=== PATIENT | female | born 1940 | race Caucasian/White ===

== ENCOUNTER 2017-10-14 05:45 | Inpatient (IN) | payer MEDICARE ==
--- NOTE | 2017-10-14 00:58 | HP ---
HISTORY OF PRESENT ILLNESS: Ms. Hawk is a 76-year-old woman who presents for evaluation of 1 month history of left lower extremity pain most consistent with a left L3 radiculopathy. She does have a h istory of previous spinal decompression and fusion from both anterior and posterior approach many yea rs ago at levels beneath the site of where her pain seems to be coming from. She has an MRI from [facility], it reveals severe lumbar stenosis L2-L3 with a disk osteophyte complex eccentric to the left which fits very well with symptoms that she is presenting with. She has had 1 epidural steroid inje ction and oral steroids which provided minimal relief. She hopes to move forward with some type of s urgical intervention if possible. PAST MEDICAL HISTORY: Significant for ITP and CLL. CURRENT MEDICATIONS: Chlorthalidone, potassium chloride, fluticasone, Premarin and [place]. PAST SURGICAL HISTORY: Hysterectomy, cystectomy from her foot, facelift, cholecystectomy, previous l umbar back surgeries, herniorrhaphy, retina surgery, dacryocystorhinostomy x3, splenectomy. ALLERGIES: BROVANA, TETRACYCLINE, SULFA, PREVPAC, and CIPRO. PHYSICAL EXAMINATION: The patient has severely antalgic gait. Lower extremity motor exam is normal. No sensory disturbance that I can discern. ASSESSMENT: Lumbar radiculopathy. PLAN: Dr. Rock met with the patient, reviewed imaging and ultimately advocated for a left L2 diskec lauren and laminectomy. He explained the patient the risks, benefits, alternatives of the procedure. The patient expressed understanding and would like to move forward with surgery as discussed. I do b elieve this patient is mentally competent and capable of making medical decisions for herself. We wi ll move forward with surgery as planned. Saad Cordero PA-C, dictating for Vasiliy Rock M.D.
[2017-10-14] MEDS ORDERED: Bupivacaine PF 0.5% 30 ML VIAL ONE ×2 (07:49→19:58)
[2017-10-14] MEDS ORDERED: Lidocaine 1% w/Epinephrine 1:200K 30 ML VIAL ONE ×2 (07:49→19:58)
[2017-10-14] MEDS ORDERED: CEFAZOLIN/Water 2 GM/20 ML SYRINGE ONE ×2 (07:50→16:54)
[2017-10-14] MEDS ORDERED: Midazolam HCl 2 mg/2 ml Vial ONE (07:50)
[2017-10-14 08:26] LABS: Hemoglobin 14.7 g/dL (12.0-16.0); Mean Corpuscular HGB CONC 33.1 g/dL (32.0-36.0); Mean Corpuscular Hemoglobin 31.1 pg (27.0-31.0); Mean Corpuscular Volume 93.8 fl (81.0-99.0); Mean Platelet Volume 14.1 fL (7.4-10.4); Platelet Count 67 thou/uL (130-400); RBC Distribution Width 12.6 % (11.5-14.5); Red Blood Cell (RBC) Count 4.72 mill/uL (4.20-5.40); White Blood Cell (WBC) Count 17.4 thou/uL (4.8-10.8)
[2017-10-14] MEDS ORDERED: Fentanyl 100 MCG/2 ML VIAL ONE ×3 (08:27→23:24)
[2017-10-14 08:29] LABS: Anion Gap 13 mmol/L (10-20); BUN (Urea Nitrogen) 11 mg/dL (9.8-20.1); Calc. Creatinine Clearance 67 mL/min (70-130); Calcium 10.5 mg/dL (7.8-10.44); Carbon Dioxide 26 mmol/L (23-31); Chloride 101 mmol/L (98-107); Estimated GFR-MDRD 74; Glucose 89 mg/dL (83-110); Potassium 3.4 mmol/L (3.5-5.1); Sodium 137 mmol/L (136-145)
[2017-10-14 08:31] LABS: PTT 26.9 SEC (22.9-36.1); Prothrombin Time 13.3 SEC (12.0-14.7)
[2017-10-14 08:44] LABS: Eosinophils 4 % (0-10); Lymphocytes 27 % (21-51); MDiff Complete? YES; Monocytes 1 % (0-10); Neutrophil 45 % (42-75); RBC Morphology Normal; Reactive Lymphocytes 22 % (0-10)
[2017-10-14] MEDS ORDERED: Meperidine HCl/PF 25 MG/ML VIAL ONE ×2 (10:26→23:07)
--- NOTE | 2017-10-14 12:01 | OP ---
DATE OF PROCEDURE: 10/14/2017 SURGEON: Vasiliy Rock M.D. MULT[employer]IA INSTRUCTIONAL DESIGNER: Saad Cordero PA-C. INDICATION: Pain. DIAGNOSIS: Lumbar stenosis with lumbar radiculopathy, lateral recess stenosis. PROCEDURE PERFORMED: L2-L3 lumbar decompression, bilateral medial facetectomy. ANESTHESIA: General. TECHNIQUE: The patient was brought into the operating room and placed under general anesthesia. She was flipped from a supine to a prone position on the operating room table. A linear incision was pl anned along the superior aspect of the old incision. After prepping and draping and after an appropr iate operative pause, the incision was created. The soft tissues were swept away from midline. Self -retaining retractors were placed in the wound for optimal exposure. After confirming the appropriat e level with C-arm fluoroscopy, an Adson rongeur as well as a high-speed cutting drill bit as well as 2, 3 and 4 mm Kerrisons were used to perform a laminectomy at the L2-L3 segment. The laminectomy wa s extended laterally to encompass the medial aspects of the facet joints at L2-L3. This very adequat justin decompressed the central canal as well as the lateral recesses. I did inspect just above the L3 pedicle at the disk space and found that not be a substantial disk component and therefore I chose no t to remove any disk material. I did remove additional yellow ligament in total, I was satisfied tessa t this segment was very well decompressed. The wound was irrigated. Hemostasis was maintained throu ghout. The wound was then closed in anatomic layers and a pressure dressing was applied. There were no known procedural complications.
[2017-10-14] MEDS ORDERED: Promethazine HCl 25 MG/ML VIAL ONE (12:09)
[2017-10-14] MEDS ORDERED: Promethazine 25 MG TAB ONE (12:09)
[2017-10-14] MEDS ORDERED: HYDROmorphone 0.5 MG/0.5 ML SYRINGE ONE ×2 (12:15→12:16)
[2017-10-14] MEDS ORDERED: Dexamethasone 4 mg/ml Vial ONE (12:29)
[2017-10-14] MEDS ORDERED: tiZANidine HCl 4 MG TAB ONE (15:13)
[2017-10-14] MEDS ORDERED: Ondansetron PF 4 MG/2 ML Vial ONE (15:30)
[2017-10-14] MEDS ORDERED: Ketorolac Tromethamine 30 MG/ML VIAL ONE (15:30)
[2017-10-14] MEDS ORDERED: Lidocaine 1% PF 5 ML VIAL ONE ×2 (15:30→15:31)
[2017-10-14] MEDS ORDERED: Dexamethasone 20 MG/5 ML VIAL ONE (15:30)
[2017-10-14] MEDS ORDERED: PROPOFOL 200 MG/20 ML VIAL ONE ×2 (15:30→15:31)
[2017-10-14] MEDS ORDERED: Glycopyrrolate 0.2 MG/ML 5 ML SYRINGE ONE (15:30)
[2017-10-14] MEDS ORDERED: Succinylcholine Chloride 20 MG/ML 10 ml SYRINGE FS ONE (15:31)
[2017-10-14] MEDS ORDERED: Diazepam 2 MG TAB PO SCH (18:30)
[2017-10-14] MEDS ORDERED: Thrombin 5000 UNITS/5 ML VIAL ONE ×2 (19:58→21:48)
--- NOTE | 2017-10-14 21:01 | PRG ---
DATE OF SERVICE: 10/14/2017. SUBJECTIVE: Ms. Hawk since my last dictated note has had an MRI scan, which reveals in fact a compressive more than likely hematoma at the operative site, but also in the epidural space, which runs for the most part in a superior direction and to a lesser extent inferiorly. PLAN: The plan will be to take her emergently back to the operating room for the purposes of further decompression. We will also leave a drain in. We will also give her platelets. She does have a known thrombocytopenia. This was not treated earlier with platelets secondary to overall well-maintained hemostasis and lack of blood loss. I have discussed this in great detail with the patient' s and the patient. They both understand and want to move forward. ENRIKE
--- NOTE | 2017-10-14 21:19 | MRI ---
MRI LUMBAR SPINE WITHOUT CONTRAST: Technique: Multiplanar, multisequence images of the lumbar spine obtained. History: Post op numbness in lower extremities. Patient is post laminectomy procedure earlier today. FINDINGS: The laminectomy site is at the L2-3 level. There is abnormal signal posterior at the operative site a t this level compressing the thecal sac posteriorly. This signal collection measures approximately 3. 6 cm AP dimension and is most consistent with a post op hematoma at the operative bed. There is evide nce of epidural hematoma extending both superior and inferior from this level. Inferiorly it extends to the L3-4 disc and compresses the thecal sac posteriorly. This extends superiorly to the L1-2 disc space and almost to the T12-l1 disc. At the level of L1 posteriorly this epidural hematoma compresses the thecal sac resulting in moderate central canal stenosis. There is severe central canal stenosis at the operative bed at L2-3 due to the large posterior hemato ma. IMPRESSION: 1. Evidence of a hematoma posteriorly at L2-3 at the operative site. There is epidural hematoma exten ding superiorly and inferiorly from this level as described above. The findings were discussed with Chadwick Rock. Code CR POS: [facility]
[2017-10-14] MEDS ORDERED: Ondansetron HCl/PF 4 MG/2 ML Vial IVP PRN (21:53)
[2017-10-14] MEDS ORDERED: Promethazine HCl 25 MG/ML VIAL SLOW IVP PRN (21:53)
[2017-10-14] MEDS ORDERED: Promethazine HCl 25 MG/ML VIAL IM PRN (21:53)
[2017-10-14 22:04] LABS: Hemoglobin 11.4 g/dL (12.0-16.0); Mean Corpuscular HGB CONC 34.6 g/dL (32.0-36.0); Mean Corpuscular Volume 92.6 fl (81.0-99.0); Platelet Count 58 thou/uL (130-400); RBC Distribution Width 12.4 % (11.5-14.5); Red Blood Cell (RBC) Count 3.57 mill/uL (4.20-5.40); White Blood Cell (WBC) Count 22.5 thou/uL (4.8-10.8)
[2017-10-14 22:12] LABS: Band 1 % (5-11); Lymphocytes 13 % (21-51); MDiff Complete? YES; Monocytes 3 % (0-10); Neutrophil 83 % (42-75); PLT Morphology Comment Appears Decreased
[2017-10-14] MEDS ORDERED: Bisacodyl 10 MG SUPP PR PRN (23:02)
[2017-10-14] MEDS ORDERED: Ondansetron PF 4 MG/2 ML Vial IVP PRN (23:02)
[2017-10-14] MEDS ORDERED: diphenhydrAMINE 50 MG/ML VIAL IVP PRN (23:02)
[2017-10-14] MEDS ORDERED: Sodium Chloride 0.9% 1,000 ML IV SCH (23:02)
[2017-10-14] MEDS ORDERED: Acetaminophen 325 MG TAB PO PRN (23:02)
--- NOTE | 2017-10-14 23:18 | PRG ---
DATE OF SERVICE: 10/14/2017 SUBJECTIVE: Ms. Hawk is a 76-year-old female known to me for single level lumbar decompression performed this morning, which was an uneventful procedure. In the postoperative course, she was reporting some persistent radicular pain , which responded well to pain medications and steroids. She also reported some dermatomal numbness. We had made the decision to admit her for pain control. She was awaiting room placement while in day stay, she started to report more numbness from the knee downward. At some point, this afternoon, the nurse tried to mobilize her to the bathroom and she had difficulty standing on her left greater than right leg. I met with her and her . She has a sensation in her lower extremities bilaterally. She does report numbness on the left greater than the right side from the knee down. She does have hip flexion motion, but she appears unable to dorsiflex or plantarflex her feet bilaterally. Other concern at this point would be potentially epidural hematoma. I have discussed with them going straight back to surgery versus repeat imaging. My concern was going straight back to surgery without imaging would be if there is epidural extension either in the cephalad to caudal direction that I am unaware of. Therefore, I believe it is prudent to obtain an emergent imaging on the way of an MRI scan. They understand and agree with this approach. She is otherwise alert, oriented, and quite pleasant. I have also spoken to our radiology colleagues as well as given the operating room here head is up for potential exploration with evacuation of hematoma. Of note, her dressing has a small quarter size area of blood on it, which is nothing concerning in itself. ENRIKE
[2017-10-15] MEDS: tiZANidine HCl 4 MG TAB PO PRN ×3 (01:25→19:32)
[2017-10-15] MEDS: HYDROcodone/Acetaminophen 7.5/325 mg Tablet PO PRN ×5 (01:25→22:29)
[2017-10-15] MEDS: Dexamethasone 4 MG TAB PO SCH ×5 (01:25→22:28)
[2017-10-15] MEDS: CEFAZOLIN/Water 2 GM/20 ML SYRINGE SLOW IVP SCH ×4 (01:26→22:29)
[2017-10-15 01:36] LABS: #Lymphocytes 2.9 thou/uL (1.20-3.40); #Monocytes 1.5 thou/uL (0.11-0.59); #Neutrophils 18.6 thou/uL (1.40-6.50); %Basophils 0.2 % (0.0-1.0); %Eosinophils 0.1 % (0.0-10.0); %Lymphocytes 12.6 % (21.0-51.0); %Monocytes 6.5 % (0.0-10.0); %Neutrophils 80.7 % (42.0-75.0); Acanthocytes SLIGHT = 1-5 cells (100X) (None Seen); Hemoglobin 9.9 g/dL (12.0-16.0); MDiff Complete? YES; Mean Corpuscular HGB CONC 34.7 g/dL (32.0-36.0); Mean Corpuscular Hemoglobin 32.1 pg (27.0-31.0); Mean Corpuscular Volume 92.3 fl (81.0-99.0); Mean Platelet Volume 9.5 fL (7.4-10.4); PLT Morphology Comment Appears Adequate; Platelet Count 226 thou/uL (130-400); RBC Distribution Width 12.4 % (11.5-14.5); Red Blood Cell (RBC) Count 3.09 mill/uL (4.20-5.40)
--- NOTE | 2017-10-15 02:46 | OP ---
DATE OF PROCEDURE: 10/14/2017 SURGEON: Vasiliy Rock MD DIRECTOR OF PERSONNEL: Saad Cordero PA-C INDICATION: Neurologic decline. DIAGNOSIS: Epidural hematoma. OPERATION PERFORMED: Reoperation and evacuation of epidural hematoma, obtained hemostasis, and place d subfascial drains. ANESTHESIA: General. TECHNIQUE: The patient was brought into the operating room and placed under general anesthesia. She was flipped from a supine to a prone position on the operating room table. Her old linear incision was identified and prepped and draped in the usual sterile fashion. After an appropriate operative p ause, the incision was created and the soft tissues were swept away from midline. There was a fair a mount of blood clot identified above the fascia within the musculature. There is also a sizable clot located beneath the fascia over the thecal sac. This was all irrigated away and carefully removed u ntil we could visualize the thecal sac without compression. We extended her old laminectomy defect s uperiorly through L1 in order to decompress, the epidural blood components were present in that regio n. Also, we completed laminectomy of L3 and the top part of L4 in order to decompress blood in that segment. The epidural clot was removed in a short period of time; however, we spent a substantial am ount of time, obtaining hemostasis. We irrigated with numerous liters of irrigant. We used Gelfoam as well as bipolar cautery irrigation to obtain hemostasis. The patient received platelets in the op erating room. After obtaining substantial overall improvement and hemostasis, two subfascial drains were placed and brought out through two separate puncture sites within the skin. The wound again was irrigated, hemostasis was maintained throughout. The operative procedure tonight was completely dif ferent than the one this morning where it was normal operation without substantial problems with blee ding this morning until tonight where she was far more overall woozy and hemostasis was difficult to grasp early on. After closing the wound in anatomic layers. There were no known procedural complica tions associated with this operation. The procedure came to an end. A pressure dressing was applied . The drains were placed to suction.
[2017-10-15 03:22] LABS: Hemoglobin 9.8 g/dL (12.0-16.0); Mean Corpuscular HGB CONC 34.5 g/dL (32.0-36.0); Mean Corpuscular Volume 92.6 fl (81.0-99.0); Mean Platelet Volume 9.5 fL (7.4-10.4); Platelet Count 215 thou/uL (130-400); RBC Distribution Width 12.2 % (11.5-14.5); Red Blood Cell (RBC) Count 3.06 mill/uL (4.20-5.40); White Blood Cell (WBC) Count 25.6 thou/uL (4.8-10.8)
[2017-10-15 03:35] LABS: #Basophils 0.1 thou/uL (0.0-0.2); #Lymphocytes 3.6 thou/uL (1.20-3.40); #Monocytes 1.9 thou/uL (0.11-0.59); %Basophils 0.3 % (0.0-1.0); %Eosinophils 0.1 % (0.0-10.0); %Monocytes 7.4 % (0.0-10.0); %Neutrophils 78.2 % (42.0-75.0); Acanthocytes SLIGHT = 1-5 cells (100X) (None Seen); MDiff Complete? YES; PLT Morphology Comment Appears Adequate
[2017-10-15 05:48] LABS: Hemoglobin 9.8 g/dL (12.0-16.0); Mean Corpuscular HGB CONC 34.5 g/dL (32.0-36.0); Mean Corpuscular Hemoglobin 31.9 pg (27.0-31.0); Mean Corpuscular Volume 92.6 fl (81.0-99.0); RBC Distribution Width 12.5 % (11.5-14.5); Red Blood Cell (RBC) Count 3.06 mill/uL (4.20-5.40); White Blood Cell (WBC) Count 25.5 thou/uL (4.8-10.8)
[2017-10-15 06:03] LABS: #Basophils 0.1 thou/uL (0.0-0.2); #Lymphocytes 3.7 thou/uL (1.20-3.40); #Neutrophils 19.7 thou/uL (1.40-6.50); %Basophils 0.3 % (0.0-1.0); %Lymphocytes 14.5 % (21.0-51.0); %Monocytes 7.8 % (0.0-10.0); %Neutrophils 77.3 % (42.0-75.0); Acanthocytes SLIGHT = 1-5 cells (100X) (None Seen); MDiff Complete? YES; Mean Platelet Volume 10.1 fL (7.4-10.4); PLT Morphology Comment Appears Adequate; Platelet Count 197 thou/uL (130-400)
--- NOTE | 2017-10-15 06:34 | EKG ---
Test Reason : PREOP Blood Pressure : / mmHG Vent. Rate : 070 BPM Atrial Rate : 070 BPM P-R Int : 154 ms QRS Dur : 094 ms QT Int : 414 ms P-R-T Axes : 061 023 055 degrees QTc Int : 447 ms Normal sinus rhythm Normal ECG No previous ECGs available Confirmed by ADILENE LYLE ([id number]) on 10/15/2017 6:34:02 AM Referred By: JONA Confirmed By:ADILENE LYLE
[2017-10-15 07:36] LABS: #Basophils 0.1 thou/uL (0.0-0.2); #Monocytes 1.8 thou/uL (0.11-0.59); #Neutrophils 18.6 thou/uL (1.40-6.50); %Basophils 0.4 % (0.0-1.0); %Lymphocytes 16.4 % (21.0-51.0); %Monocytes 7.4 % (0.0-10.0); %Neutrophils 75.7 % (42.0-75.0); Hemoglobin 9.1 g/dL (12.0-16.0); Mean Corpuscular HGB CONC 34.3 g/dL (32.0-36.0); Mean Corpuscular Hemoglobin 31.8 pg (27.0-31.0); Mean Corpuscular Volume 92.8 fl (81.0-99.0); Platelet Count 151 thou/uL (130-400); RBC Distribution Width 12.5 % (11.5-14.5); Red Blood Cell (RBC) Count 2.86 mill/uL (4.20-5.40); White Blood Cell (WBC) Count 24.5 thou/uL (4.8-10.8)
[2017-10-15] MEDS: Folic Acid/Vit B Comp W-C PO SCH (08:50)
[2017-10-15] MEDS: Famotidine/PF 20 mg/2ml Vial SLOW IVP SCH ×2 (08:51→22:19)
[2017-10-15] MEDS ORDERED: FLU VACC TS2017-18 (>65YR) 0.5 ML SYRINGE IM ONE (09:00)
[2017-10-15] MEDS ORDERED: GASSERI PO SCH (09:00)
[2017-10-15] MEDS ORDERED: B BIFIDUM PO SCH (09:00)
[2017-10-15] MEDS ORDERED: Prevnar 13-Val Conj/PF 0.5 ML SYRINGE IM ONE (09:00)
[2017-10-15] MEDS ORDERED: B LONGUM PO SCH (09:00)
[2017-10-15] MEDS ORDERED: HERBAL DRUGS PO SCH (09:00)
[2017-10-15] MEDS: Sodium Chloride 0.9% 1,000 ML IV SCH (09:52)
[2017-10-15 10:37] VITALS: BMI 23.8
[2017-10-15] MEDS ORDERED: Dexamethasone 20 MG in Sodium Chloride 0.9% 50 ML IVPB SCH (11:30)
[2017-10-15 12:07] LABS: #Basophils 0.1 thou/uL (0.0-0.2); #Monocytes 1.3 thou/uL (0.11-0.59); #Neutrophils 23.2 thou/uL (1.40-6.50); %Basophils 0.4 % (0.0-1.0); %Lymphocytes 10.9 % (21.0-51.0); %Monocytes 4.7 % (0.0-10.0); %Neutrophils 83.9 % (42.0-75.0); Mean Corpuscular HGB CONC 33.7 g/dL (32.0-36.0); Mean Corpuscular Hemoglobin 31.6 pg (27.0-31.0); Mean Corpuscular Volume 93.7 fl (81.0-99.0); Mean Platelet Volume 10.6 fL (7.4-10.4); Platelet Count 150 thou/uL (130-400); RBC Distribution Width 12.6 % (11.5-14.5); Red Blood Cell (RBC) Count 3.15 mill/uL (4.20-5.40); White Blood Cell (WBC) Count 27.6 thou/uL (4.8-10.8)
--- NOTE | 2017-10-15 17:33 | CON ---
DATE OF CONSULTATION: 10/15/2017 REASON FOR CONSULTATION: Thrombocytopenia. HISTORY OF PRESENT ILLNESS: Ms. Hawk is a very pleasant 76-year-old female with a history of CLL and ITP. She was admitted for lumbar stenosis. She underwent a L2-L3 lumbar decompression with bilateral medial facetectomy. She unfortunately had an epidural hematoma causing severe pain and bilateral lower extremity weakness. She then went to reoperation and evacuation of the epidural hematoma. On admission, her platelet count was 67,000, white count was 17.4. She was diagnosed with CLL with 13q deletion in 2014. At the time of diagnosis, she had a platelet count of 30,000. She was treated with steroids and then received Rituxan x4 doses. She was in remission for her ITP for approximately 9 months. She continued to drop and underwent a splenectomy in 06/2016. She sees an oncologist/gas load dispatcher in [place]. She has not needed any treatment for her CLL but is monitored only. She states over the past few months, her platelets have once again began to trend downward to the 70,000-80, 000 range. Since her operation, she was started on steroids and her platelets have improved and are currently at 150,000. Her pain has resolved; however, she continues to have weakness in her right lower extremity. PAST MEDICAL HISTORY: 1. CLL. 2. ITP status post splenectomy in 2015. 3. Chronic back pain. PAST SURGICAL HISTORY: 1. Splenectomy. 2. Hysterectomy. 3. Cystectomy. 4. Cholecystectomy. 5. Prior back surgeries. ALLERGIES: BROVANA, TETRACYCLINE, SULFA, PREVPAC, and CIPRO. FAMILY HISTORY: Her father had multiple myeloma. She has had multiple siblings with variety of different cancers. SOCIAL HISTORY: , lives with her in [place]. Grown children. No alcohol, tobacco or illicit drug use. REVIEW OF SYSTEMS: Constitutional: No fever, chills, night sweats, recent weight loss or gain. Eyes: No blurred or double vision. ENT: No pain, hoarseness, sore throat, or dysphagia. Cardiovascular: No chest pain, palpitations or syncope. Respiratory: No shortness breath, dyspnea on exertion or orthopnea. Gastrointestinal: No nausea, vomiting, diarrhea, or abdominal pain. Genitourinary: No dysuria or hematuria. Musculoskeletal: Positive for left back and leg pain. Skin: No rash or pruritus. Hematologic: No bleeding, bruising or clotting. Neurologic: Positive for weakness, no headache, numbness, tingling or seizure activity. Psychiatric: No anxiety or depression. PHYSICAL EXAMINATION: VITAL SIGNS: Temperature is 99.4, pulse is 73, respiratory rate 20, BP is 124/ 47. She is 92% on room air. GENERAL: This is a well-developed, well-nourished female in no acute distress. HEENT: Normocephalic, atraumatic. Pupils are equal and reactive to light. NECK: Supple. CARDIOVASCULAR: Regular rate and rhythm. LUNGS: Clear. ABDOMEN: Soft, nontender, bowel sounds are positive. EXTREMITIES: No clubbing, cyanosis or edema. SKIN: No rash. HEMATOLOGIC: No petechia or purpura. NEUROLOGICAL: She has weakness in her left lower extremity. PSYCHIATRIC: She is alert and oriented and appropriate. PERTINENT LABORATORY AND X-RAYS: Current WBC 24.5, hemoglobin 9.1, hematocrit 26.5, platelet count is 151,000. She has 76% neutrophils, 16% lymphocytes. PT 13.3, INR is 1.0, PTT is 26.9. Sodium is 137, potassium 3.4, chloride 101, CO2 is 26, BUN is 11, creatinine 0.76, calcium is 10.5. ASSESSMENT: 1. Lumbar stenosis status post spinal decompression. 2. History of immune thrombocytopenic purpura status post Rituxan and splenectomy. 3. Epidural hematoma. 4. History of chronic lymphocytic leukemia. DISCUSSION: The patient has been started on steroids at 1.5 mg per kilograms for both lumbar edema and her low platelet count. She has received an additional dose of Dexamethasone 20mg IVPB. She has responded to steroids in the past; however, the response has been short lived. Her platelets have improved from 57,000 and 151,000. Would continue the steroids throughout her hospital stay. She has an appointment with her gas load dispatcher in the next week. She will update him on the events of the hospitalization. Recommend she stay on steroids until she is able to follow up with him. Thank you for the consultation. ENRIKE
--- NOTE | 2017-10-15 17:42 | PRG ---
DATE OF SERVICE: 10/15/2017 SUBJECTIVE: Ms. Hawk is 1 day status post a single level lumbar laminectomy followed by an emergent return to the operating room for evacuation of an epidural hematoma. She was placed in the IMCU over the course of the night just for close neurologic monitoring. She has since that time been transferred to the surgical floor where I visited with her and her family. Her platelet count is stabilized in part due to administration of platelets, but also due to high dose administration of steroids. I have asked Dr. Richards to visit with the patient and she has done so and we will make additional recommendations as needed with respect to her hematological disorder. OBJECTIVE: From a neurologic perspective, Ms. Hawk is alert, oriented, and quite conversant. She has improved sensation in the left distal lower extremity and now has some movement of her toes. She has intact sensation in both distal lower extremities. She has [address], both of which have remained patent with minimal output. I had a lengthy discussion with Ms. Hawk and her family about her treatments up until now. The plan will be to move forward with aggressive PT and OT. She would benefit from inpatient rehabilitation and we will work for placement either here locally or closer to her home near [place]. I do believe that she will continue to show neurologic improvement, but it will be a very slow process. I have informed her of this. She can be transitioned to an inpatient rehab once she is stable from a medical and hematological perspective. We should target the latter part of this week. ENRIKE
[2017-10-15 21:13] LABS: Acanthocytes SLIGHT = 1-5 cells (100X) (None Seen); Band 1 % (5-11); Hemoglobin 9.6 g/dL (12.0-16.0); Large Platelets SLIGHT; Lymphocytes 8 % (21-51); MDiff Complete? YES; Mean Corpuscular HGB CONC 34.5 g/dL (32.0-36.0); Mean Corpuscular Hemoglobin 32.1 pg (27.0-31.0); Mean Corpuscular Volume 93.2 fl (81.0-99.0); Mean Platelet Volume 10.9 fL (7.4-10.4); Monocytes 3 % (0-10); Neutrophil 88 % (42-75); Platelet Count 133 thou/uL (130-400); RBC Distribution Width 12.6 % (11.5-14.5); Red Blood Cell (RBC) Count 2.98 mill/uL (4.20-5.40); White Blood Cell (WBC) Count 27.8 thou/uL (4.8-10.8)
[2017-10-15] MEDS: Docusate 100 MG CAP PO SCH (22:19)
[2017-10-16] MEDS: HYDROcodone/Acetaminophen 7.5/325 mg Tablet PO PRN ×4 (05:40→21:34)
[2017-10-16] MEDS: Dexamethasone 4 MG TAB PO SCH ×4 (05:40→23:27)
[2017-10-16] MEDS: tiZANidine HCl 4 MG TAB PO PRN (05:40)
[2017-10-16] MEDS: Sodium Chloride 0.9% 1,000 ML IV SCH (05:48)
[2017-10-16] MEDS ORDERED: SODIUM CHLORIDE 0.9% IVPB SCH (08:30)
[2017-10-16] MEDS ORDERED: DEXAMETHASONE IVPB SCH (08:30)
[2017-10-16 09:12] LABS: Hemoglobin 9.4 g/dL (12.0-16.0); Mean Corpuscular HGB CONC 33.5 g/dL (32.0-36.0); Mean Corpuscular Hemoglobin 31.5 pg (27.0-31.0); Mean Platelet Volume 11.5 fL (7.4-10.4); Platelet Count 125 thou/uL (130-400); RBC Distribution Width 12.5 % (11.5-14.5); Red Blood Cell (RBC) Count 2.99 mill/uL (4.20-5.40); White Blood Cell (WBC) Count 31.1 thou/uL (4.8-10.8)
[2017-10-16 09:38] LABS: Acanthocytes SLIGHT = 1-5 cells (100X) (None Seen); Band 4 % (5-11); Burr Cells SLIGHT = 2-5 cells (100X) (0-1/hpf); Large Platelets SLIGHT; Lymphocytes 15 % (21-51); MDiff Complete? YES; Neutrophil 81 % (42-75); PLT Morphology Comment Appears Decreased; Polychromasia SLIGHT = 2-3 cells (100X) (0-2/hpf)
[2017-10-16] MEDS: CEFAZOLIN/Water 2 GM/20 ML SYRINGE SLOW IVP SCH ×3 (09:58→23:27)
[2017-10-16] MEDS: Vit A,C & E/Lutein/Minerals Tablet PO SCH (10:00)
[2017-10-16] MEDS: Famotidine/PF 20 mg/2ml Vial SLOW IVP SCH ×2 (10:00→20:48)
[2017-10-16] MEDS: Folic Acid/Vit B Comp W-C PO SCH (10:00)
[2017-10-16] MEDS: Docusate 100 MG CAP PO SCH (20:48)
[2017-10-16 21:57] LABS: Band 6 % (5-11); Hemoglobin 10.3 g/dL (12.0-16.0); Lymphocytes 11 % (21-51); MDiff Complete? YES; Mean Corpuscular HGB CONC 34.1 g/dL (32.0-36.0); Mean Corpuscular Hemoglobin 31.6 pg (27.0-31.0); Mean Corpuscular Volume 92.7 fl (81.0-99.0); Mean Platelet Volume 10.8 fL (7.4-10.4); Monocytes 5 % (0-10); Neutrophil 78 % (42-75); PLT Morphology Comment Appears Adequate; Platelet Count 148 thou/uL (130-400); RBC Distribution Width 12.6 % (11.5-14.5); Red Blood Cell (RBC) Count 3.26 mill/uL (4.20-5.40); White Blood Cell (WBC) Count 36.5 thou/uL (4.8-10.8)
[2017-10-17] MEDS: HYDROcodone/Acetaminophen 7.5/325 mg Tablet PO PRN ×5 (01:14→20:50)
[2017-10-17] MEDS: Dexamethasone 4 MG TAB PO SCH ×3 (06:20→17:02)
[2017-10-17] MEDS: Sodium Chloride 0.9% 1,000 ML IV SCH (06:27)
[2017-10-17] MEDS: CEFAZOLIN/Water 2 GM/20 ML SYRINGE SLOW IVP SCH ×2 (08:08→17:02)
[2017-10-17] MEDS: Vit A,C & E/Lutein/Minerals Tablet PO SCH (08:09)
[2017-10-17] MEDS: Famotidine/PF 20 mg/2ml Vial SLOW IVP SCH (08:09)
[2017-10-17] MEDS: Folic Acid/Vit B Comp W-C PO SCH (08:09)
[2017-10-17 09:40] LABS: #Basophils 0.5 thou/uL (0.0-0.2); #Eosinphils 0.1 thou/uL (0.0-0.7); #Lymphocytes 4.4 thou/uL (1.20-3.40); #Monocytes 1.3 thou/uL (0.11-0.59); #Neutrophils 28.1 thou/uL (1.40-6.50); %Basophils 1.3 % (0.0-1.0); %Eosinophils 0.3 % (0.0-10.0); %Lymphocytes 12.9 % (21.0-51.0); %Monocytes 3.6 % (0.0-10.0); %Neutrophils 81.9 % (42.0-75.0); Hemoglobin 10.7 g/dL (12.0-16.0); Large Platelets SLIGHT; MDiff Complete? YES; Mean Corpuscular HGB CONC 33.6 g/dL (32.0-36.0); Mean Corpuscular Hemoglobin 31.4 pg (27.0-31.0); Mean Corpuscular Volume 93.4 fl (81.0-99.0); Mean Platelet Volume 10.8 fL (7.4-10.4); Platelet Clumps SLIGHT; Platelet Count 173 thou/uL (130-400); RBC Distribution Width 12.6 % (11.5-14.5); Red Blood Cell (RBC) Count 3.42 mill/uL (4.20-5.40); White Blood Cell (WBC) Count 34.4 thou/uL (4.8-10.8)
--- NOTE | 2017-10-17 10:59 | ULT ---
BILATERAL LOWER EXTREMITY VENOUS ULTRASOUND: HISTORY: Bilateral lower extremity pain and edema. TECHNIQUE: Hodges scale ultrasound with color flow and spectral Doppler imaging of the deep venous systems of the lower extremities was performed bilaterally. FINDINGS: There is good flow, compression, and augmentation noted in the common femoral, femoral, deep femoral, popliteal, posterior tibial, and greater saphenous veins. IMPRESSION: No evidence of deep vein thrombosis in either lower extremity. POS: [facility]
[2017-10-17] MEDS: Docusate 100 MG CAP PO SCH (20:51)
[2017-10-17] MEDS: Famotidine 20 MG TAB PO SCH (20:51)
[2017-10-17 21:29] LABS: Acanthocytes SLIGHT = 1-5 cells (100X) (None Seen); Band 3 % (5-11); Hemoglobin 10.9 g/dL (12.0-16.0); Lymphocytes 22 % (21-51); MDiff Complete? YES; Mean Corpuscular HGB CONC 34.6 g/dL (32.0-36.0); Mean Corpuscular Hemoglobin 32.2 pg (27.0-31.0); Mean Platelet Volume 10.6 fL (7.4-10.4); Monocytes 5 % (0-10); Neutrophil 69 % (42-75); PLT Morphology Comment Appears Adequate; Platelet Count 166 thou/uL (130-400); RBC Distribution Width 12.7 % (11.5-14.5); Reactive Lymphocytes 1 % (0-10); White Blood Cell (WBC) Count 34.8 thou/uL (4.8-10.8)
--- NOTE | 2017-10-17 21:46 | PRG ---
DATE OF SERVICE: 10/17/2017 Ms. Hawk continues to recover on the surgical floor status post laminectomy with subsequent evacuation of epidural hematoma. She continues to show gradual neurologic improvement. She is now antigravity with the left leg. She continues to have toe wiggle and she has improved sensation on the left side. Her right leg is graded 3/4 strength throughout. She is not yet able to weightbear. Physical therapy and occupational therapy had been working with her. The rehabilitation colleagues have seen her and her plans towards disposition to rehab once she received insurance approval. Once insurance approved disposition, she can be transferred any time. We did remove her Overton catheter today. We will have to assess her bladder function to see if she has a neurogenic bladder. If so, she may need to have Overton catheter placed again. Oncology and Hematology continue to follow along and she has been relatively stable with respect to her platelet count. She continues to get high dose of Decadron. Her incision remains well healed and approximated. The drains have been removed due to minimal output. MTDD
[2017-10-18] MEDS: CEFAZOLIN/Water 2 GM/20 ML SYRINGE SLOW IVP SCH ×4 (00:04→23:53)
[2017-10-18] MEDS: Dexamethasone 4 MG TAB PO SCH ×5 (00:04→23:53)
[2017-10-18] MEDS: HYDROcodone/Acetaminophen 7.5/325 mg Tablet PO PRN ×5 (01:00→22:17)
--- NOTE | 2017-10-18 03:01 | PRG ---
DATE OF SERVICE: 10/17/2017 Ms. Hawk is now postop day #3 following emergent hematoma evacuation of the lumbar spine, status pos t lumbar decompression. Ms. Hawk continued to make a great deal of progress in regards to her motor and sensory exam, particularly regarding the left lower extremity. She is able to lift and hold it above the bed. She still has limited dorsiflexion, but can plantar flex her arm and move her toes a lot more. She started to experience a great deal of sensation below the knee, but still has rather s ignificant hypoesthesia above the knee and laterally on the left lower extremity. Her right lower ex tremity actually functions quite well. She started to have sensitivity and tenderness. She describe s it to the left lower leg and thigh. I think this signal is a good sign. She and her daughter are concerned because she has had a history of DVT in the past. I do not think that that is what this is , but just for reassurance and the fact that she has not been mobile for the past 72 hours. We will go ahead and get an ultrasound this morning to confirm. I will remove her drain, as this likely has not been draining for the last 24 hours. We will stop the antibiotics and likely pull her Overton some time later today to just to ensure that she has regained bladder control. If this fails after 6 hour s, we can bladder scan and see if she is retaining urine and at that point may reinsert Overton as need ed. Plan for today is to see if we can get her into inpatient rehabilitation hope to do it today if not just before the weekend. She remains in good spirits. I think she will continue to recover, it may just take time. Saad Cordero PA-C, dictating for Dr. Rock. Also this encounter took place at 7:30 in the morning 10/17/2017.
[2017-10-18] MEDS: Sodium Chloride 0.9% 1,000 ML IV SCH (06:53)
[2017-10-18] MEDS: Folic Acid/Vit B Comp W-C PO SCH (08:23)
[2017-10-18] MEDS: Vit A,C & E/Lutein/Minerals Tablet PO SCH (08:23)
[2017-10-18] MEDS: Famotidine 20 MG TAB PO SCH ×2 (08:24→20:13)
[2017-10-18] MEDS ORDERED: Milk Of Magnesia 30 ML UDCUP PO PRN (08:42)
[2017-10-18 09:07] LABS: Hemoglobin 11.5 g/dL (12.0-16.0); Mean Corpuscular HGB CONC 32.7 g/dL (32.0-36.0); Mean Corpuscular Hemoglobin 30.7 pg (27.0-31.0); Mean Platelet Volume 11.3 fL (7.4-10.4); Platelet Count 227 thou/uL (130-400); Red Blood Cell (RBC) Count 3.73 mill/uL (4.20-5.40); White Blood Cell (WBC) Count 31.6 thou/uL (4.8-10.8)
[2017-10-18 10:19] LABS: Acanthocytes SLIGHT = 1-5 cells (100X) (None Seen); Lymphocytes 12 % (21-51); MDiff Complete? YES; Monocytes 5 % (0-10); Neutrophil 83 % (42-75); PLT Morphology Comment Appears Adequate
[2017-10-18] MEDS: Docusate 100 MG CAP PO SCH (20:13)
[2017-10-19] MEDS: HYDROcodone/Acetaminophen 7.5/325 mg Tablet PO PRN ×4 (05:04→22:06)
[2017-10-19] MEDS: Dexamethasone 4 MG TAB PO SCH ×4 (05:05→23:24)
[2017-10-19] MEDS: Sodium Chloride 0.9% 1,000 ML IV SCH (05:07)
[2017-10-19] MEDS: Vit A,C & E/Lutein/Minerals Tablet PO SCH (07:48)
[2017-10-19] MEDS: Famotidine 20 MG TAB PO SCH ×2 (07:48→20:23)
[2017-10-19] MEDS: CEFAZOLIN/Water 2 GM/20 ML SYRINGE SLOW IVP SCH ×3 (07:49→23:24)
[2017-10-19] MEDS: Folic Acid/Vit B Comp W-C PO SCH (07:49)
--- NOTE | 2017-10-19 10:50 | PRG ---
DATE OF SERVICE: 10/19/2017 Kerri Hawk is hospital day #5. She has ITP and had epidural hematoma evacuation. She is improving daily in regards to her lower extremity function. At this point, really the main deficit at this po int is left knee extension, dorsi and plantarflexion. Her wound is healing well. I have kept the dr peraza in place; however, after examining the wound, I am very pleased with how she is doing. The pl an is for transfer to inpatient rehabilitation. We will continue Decadron at 4 mg every 6 hours to t reat her thrombocytopenia which has demonstrated improvement.
[2017-10-19] MEDS: Docusate 100 MG CAP PO SCH (20:23)
[2017-10-20] MEDS: HYDROcodone/Acetaminophen 7.5/325 mg Tablet PO PRN ×4 (05:32→20:18)
[2017-10-20] MEDS: Dexamethasone 4 MG TAB PO SCH ×4 (05:33→23:34)
[2017-10-20] MEDS: Sodium Chloride 0.9% 1,000 ML IV SCH (06:55)
[2017-10-20] MEDS: CEFAZOLIN/Water 2 GM/20 ML SYRINGE SLOW IVP SCH ×3 (08:40→23:34)
[2017-10-20] MEDS: Vit A,C & E/Lutein/Minerals Tablet PO SCH (08:55)
[2017-10-20] MEDS: Folic Acid/Vit B Comp W-C PO SCH (08:55)
[2017-10-20] MEDS: Famotidine 20 MG TAB PO SCH ×2 (08:55→20:18)
--- NOTE | 2017-10-20 14:07 | PRG ---
DATE OF SERVICE: 10/20/2017 Davonte Núñez PA-C dictating for Dr. Mukul Ortez. POSTOPERATIVE PROGRESS NOTE Ms. Hawk is now hospital day #6. She does have a history of ITP and epidural hematoma evacuation fo llowing a lumbar spinal surgery. She states she continues to improve in regard to her function. She does have incisional back pain with numbness and tingling and pins and needle-like feeling into the left lower extremity. She continues to have weakness in the left dorsi and plantar flexion, though a ppears to have good strength in plantar flexion. Her wound continues to heal well. Now, we are awai ting on placement into rehabilitation. From our standpoint, she is stable to discharge at this time. She would do well in rehab and hope is that her insurance will approve, so that we can get her lundberg sferred there soon. Please call with any questions or changes in the patient's neurologic status. O therwise, the patient is recovering well.
[2017-10-20] MEDS: Docusate 100 MG CAP PO SCH (20:18)
[2017-10-21] MEDS: Dexamethasone 4 MG TAB PO SCH ×4 (05:55→23:52)
[2017-10-21] MEDS: HYDROcodone/Acetaminophen 7.5/325 mg Tablet PO PRN ×4 (05:55→21:02)
[2017-10-21] MEDS: Sodium Chloride 0.9% 1,000 ML IV SCH (06:39)
[2017-10-21] MEDS: Famotidine 20 MG TAB PO SCH ×2 (08:57→21:05)
[2017-10-21] MEDS: CEFAZOLIN/Water 2 GM/20 ML SYRINGE SLOW IVP SCH ×3 (08:57→23:52)
[2017-10-21] MEDS: Vit A,C & E/Lutein/Minerals Tablet PO SCH (08:57)
[2017-10-21] MEDS: Folic Acid/Vit B Comp W-C PO SCH (08:57)
[2017-10-21 10:12] LABS: Acanthocytes SLIGHT = 1-5 cells (100X) (None Seen); Anisocytosis SLIGHT = 6-15 cells (100X) (0-5/hpf); Band 1 % (5-11); Hemoglobin 12.4 g/dL (12.0-16.0); Lymphocytes 25 % (21-51); MDiff Complete? YES; Mean Corpuscular HGB CONC 32.8 g/dL (32.0-36.0); Mean Corpuscular Hemoglobin 31.5 pg (27.0-31.0); Mean Platelet Volume 10.6 fL (7.4-10.4); Monocytes 7 % (0-10); Neutrophil 65 % (42-75); PLT Morphology Comment Appears Adequate; Platelet Count 241 thou/uL (130-400); RBC Distribution Width 13.7 % (11.5-14.5); Reactive Lymphocytes 2 % (0-10); Red Blood Cell (RBC) Count 3.92 mill/uL (4.20-5.40)
[2017-10-21] MEDS: Docusate 100 MG CAP PO SCH (21:05)
[2017-10-22] MEDS: HYDROcodone/Acetaminophen 7.5/325 mg Tablet PO PRN ×3 (03:35→17:06)
[2017-10-22 05:52] LABS: Band 1 % (5-11); Hemoglobin 11.2 g/dL (12.0-16.0); Lymphocytes 29 % (21-51); MDiff Complete? YES; Mean Corpuscular HGB CONC 33.8 g/dL (32.0-36.0); Mean Corpuscular Volume 94.7 fl (81.0-99.0); Mean Platelet Volume 9.9 fL (7.4-10.4); Monocytes 4 % (0-10); Neutrophil 64 % (42-75); PLT Morphology Comment Appears Adequate; Platelet Count 144 thou/uL (130-400); RBC Distribution Width 13.2 % (11.5-14.5); Reactive Lymphocytes 2 % (0-10); Red Blood Cell (RBC) Count 3.51 mill/uL (4.20-5.40); White Blood Cell (WBC) Count 35.1 thou/uL (4.8-10.8)
[2017-10-22] MEDS: Dexamethasone 4 MG TAB PO SCH ×3 (06:41→17:06)
[2017-10-22] MEDS: Sodium Chloride 0.9% 1,000 ML IV SCH (06:44)
[2017-10-22] MEDS: CEFAZOLIN/Water 2 GM/20 ML SYRINGE SLOW IVP SCH (09:38)
[2017-10-22] MEDS: Vit A,C & E/Lutein/Minerals Tablet PO SCH (09:39)
[2017-10-22] MEDS: Folic Acid/Vit B Comp W-C PO SCH (09:39)
[2017-10-22] MEDS: Famotidine 20 MG TAB PO SCH (09:39)
[2017-10-22 12:52] VITALS: BP 152/81; TEMP 97.9
--- NOTE | 2017-10-23 10:05 | PRG ---
DATE OF SERVICE: 10/22/2017 Ms. Hawk is a 76-year-old female who continues to recover and make progress with respect to postoper ative hematoma that was evacuated on the same day of index surgery procedure which was a single level lumbar laminectomy. She continues to make significant strides with respect to her neurologic functi on. Her main weakness at this point is with dorsiflexion of the left foot. She has been walking wit h assistance and with a walker. She has just now been approved from her insurance perspective for in patient rehab and she will transition to rehab today. We will continue to see her episodically while she was in rehab and then arrange appropriate outpatient followup thereafter.
--- NOTE | 2017-10-23 11:14 | DIS ---
Ms. Hawk is a 76-year-old woman who was admitted to [facility] on 10/14/2017 in the postope rative period, was subsequently discharged on 10/23/[address] Vasiliy Rock. ADMISSION DIAGNOSES: Status post spinal hematoma evacuation and motor weakness in the bilateral lowe r extremities. HOSPITAL COURSE: Ms. Hawk is a very pleasant 76-year-old woman who was admitted in the postoperativ e period Saturday evening following an emergent surgery to evacuate a lumbar epidural hematoma that was causing significant motor weakness and numbness, particularly on the left. Her course was complicat ed by continued weakness in her particularly left lower extremity and consultations were into physica l therapy, occupational therapy, rehabilitative medicine, and Oncology as the patient does have ATP a nd was thrombocytopenic on Saturday at 53,000 platelets. Platelets administered 3 separate times on Mo evening and then ultimately her platelets stabilized in the mid 150,000-170,000 range after ster oids were begun on a daily basis in the form of Decadron. Ultimately, the patient stabilized, she be corwin to ambulate on her own with the assistance of a walker and [facility] with outpatient followup plan. Saad Cordero PA-C, dictating for Vasiliy Rock M.D.
== END 2017-10-22 18:00 | DRG 519 ==
LOC: SDC 05:45 → SURG A 15:12 → OBSVTOIN 23:02 → SURG A 23:07 → IMCU/EMU 10-15 00:06 → SURG B 10-15 16:05
PROVIDERS: ADMIT Neurological Surgery; ATTEND Neurological Surgery
PROC: 00NY0ZZ Release Lumbar Spinal Cord, Open Approach (ICD-10-PCS; principal; 2017-10-14)
PROC: 00NY0ZZ Release Lumbar Spinal Cord, Open Approach (ICD-10-PCS; 2017-10-14)
PROC: 00CY0ZZ Extirpation of Matter from Lumbar Spinal Cord, Open Approach (ICD-10-PCS; 2017-10-14)
DX: M54.16 Radiculopathy, lumbar region (principal); D69.3 Immune thrombocytopenic purpura; C91.10 Chronic lymphocytic leukemia of B-cell type not having achieved remission; M96.840 Postprocedural hematoma of a musculoskeletal structure following a musculoskeletal system procedure; M48.061 Spinal stenosis, lumbar region without neurogenic claudication; Z86.718 Personal history of other venous thrombosis and embolism; Y83.8 Other surgical procedures as the cause of abnormal reaction of the patient, or of later complication, without mention of misadventure at the time of the procedure; I10 Essential (primary) hypertension; E78.5 Hyperlipidemia, unspecified; M81.0 Age-related osteoporosis without current pathological fracture; Z90.710 Acquired absence of both cervix and uterus
CPT/HCPCS: 36415; 36430; 72148; 76001; 80048; 85025; 85610; 85730; 86850; 86900; 86901; 90471; 90670; 90682; 93005; 93010; 93970; 96374; 96375; G0008; G0009; G8978-GP-CK; G8979-GP-CI; G8987-GO-CL; G8988-GO-CJ; J0131; J1100; J1170; J1885; J2001; J2175; J2250; J2270; J2405; J2550; J2704; J3010; J7050; J8540; P9035; P9059; Q2036; S0020; S0028

== ENCOUNTER 2017-10-27 14:38 | Inpatient (IN) | payer MEDICARE ==
[2017-10-27] MEDS ORDERED: Mag-Al 1200 mg/1200 mg/30 ML UDCUP PO PRN (16:23)
[2017-10-27] MEDS ORDERED: Acetaminophen 325 MG TAB PO PRN (16:23)
[2017-10-27] MEDS ORDERED: Temazepam 15 MG CAP PO PRN (16:23)
--- NOTE | 2017-10-27 17:20 | HP ---
CHIEF COMPLAINT: Decreasing platelet count. HISTORY OF PRESENT ILLNESS: This is a very pleasant 76-year-old female that has a history of chronic lymphocytic leukemia. 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 She was in her usual state of health until recently. She also has a history of severe low back pa in and lumbar spinal disease. She underwent an L2 and 3 lumbar decompression surgery as well as a bi lateral facetectomy. Following the surgery, she had a drop in her platelet count and developed an ep idural hematoma resulting in some left lower extremity numbness and weakness. She had to have an urg ent evacuation of the hematoma, and she was then transitioned over to the [facility] due to the weakness as a result of the epidural hematoma. She had been progressing well in [facility] rehabilitation unit when it was noted that her platelet count was steadily beginning to drop once a gain and her platelet count earlier today was 55,000. This is not much higher than when she had the spontaneous bleed into the lumbar epiderm. For this reason, she was transferred back to [facility] for Hematology evaluation and possibly administration of IVIG. Currently, the delfina leonard is more or less asymptomatic. She says that she occasionally will get a shortness of breath sen sation, but she says this happens when her platelet count gets low. She denies any chest pain. Ther e has been no gum bleeding, no bruising, no blood in the stools. No dark stools or black stools. Sh e also denies any feeling dizzy or lightheaded. REVIEW OF SYSTEMS: CONSTITUTIONAL: She has had no fevers or chills, no night sweats, no weight loss. HEENT: She denies any headache. No dizziness. No visual changes. No sore throat, rhinorrhea, or n obed pain. No adenopathy. PULMONARY: No hemoptysis, no cough, no wheezing. CARDIOVASCULAR: She denies any chest pain, no shortness of breath, no PND, no orthopnea. GASTROINTESTINAL: There has been no abdominal pain, no nausea, no vomiting, no change in bowels, no dark stools, no hematemesis. GENITOURINARY: No urinary frequency or hematuria, no hesitancy. NEUROLOGIC: She does have some weakness in the left lower extremity as well as some numbness and tin gling, but her upper motor strength is intact. SKIN/INTEGUMENT: She has had some bruising, but none recently. No gum bleeding, no petechia. PAST MEDICAL HISTORY: Significant for chronic lymphocytic leukemia, lumbar spinal stenosis, ITP, and she says an irregular heartbeat at time. PAST SURGICAL HISTORY: She has had a spinal decompression and fusion at L2 and L3 recently, an L2-L3 lumbar decompression and bilateral medial fasciectomy on 10/14/2017 and the development of an epidur al hematoma. She has also had a splenectomy, hysterectomy, cystectomy, and cholecystectomy. ALLERGIES: BROVANA, TETRACYCLINE, SULFA, PREVPAC, and CIPRO. FAMILY HISTORY: Significant for multiple myeloma and cancer. SOCIAL HISTORY: She is . She is a nonsmoker, nondrinker. There is no tobacco use. CURRENT MEDICATIONS: [facility] ch[facility] orthalidone 25 mg daily, cholecalciferol 1000 international units daily, docusate sodium 200 mg twice a day, famotidine 20 mg twice a day, multivitamins with minerals daily, Nephro-Cheryl 1 tablet daily, potassium chloride 20 mEq 2 tablets a day, prednisone total of 80 mg daily, acetaminophen 325 mg susan y, Bisacodyl 10 mg suppository daily, calcium carbonate 500 mg daily, clonidine 0.1 mg as needed, dip henhydramine 25 mg daily, glucagon, loperamide 2 mg daily, ocular lubricant p.r.n., Zofran 4 mg p.r.n ., senna 8.6 mg daily, tizanidine 4 mg q.6, and Tramadol 50 mg q.6 as needed. PHYSICAL EXAMINATION: GENERAL: She is alert and oriented. She appears to be in no acute distress. VITAL SIGNS: Stable. HEENT: Pupils are equal, round, and reactive. Extraocular muscles are intact. Sclerae are anicteri c. Throat: No erythema, no exudates. NECK: No adenopathy, no bruits. LUNGS: Clear. There is no wheezing, no rales. CARDIOVASCULAR: She had a normal S1, S2. I did not appreciate an S3 or S4. No murmurs, clicks, or rubs. ABDOMEN: Soft, nontender, nondistended. Positive for bowel sounds. No rebound, no guarding. EXTREMITIES: There is no edema. NEUROLOGICALLY: The exam is significant for some lower extremity weakness. She is able to lift her left leg off of the bed, but not against resistance. She is not able to dorsiflex her foot on the le ft side. The muscle strength is intact in the upper extremities. LABORATORY DATA: White blood cell count 13.3, hemoglobin 11.1, hematocrit 33.3, platelet count is 55 . Sodium 135, potassium 3.4, chloride is 97, CO2 is 30, BUN of 20, creatinine 0.69, glucose is 87. INR with 1.0, but this was on 10/14/2017. ASSESSMENT AND PLAN: This is a 76-year-old female that was sent over from the rehab center due to a drop in her platelet count. She will be seen by Hematology/Oncology whichever they have already been notified. We will hold off on any Lovenox or other anticoagulation and tried to avoid any antiplate let medications. Also, we will avoid famotine this can interact cases cause a drop in platelets and instead use a proton pump inhibitor. Again, we will follow the recommendations as per Hematology/Onc ology. We will continue prednisone at 80 mg daily for her baseline treatment of ITP. Monitor her CBC closel y.
--- NOTE | 2017-10-27 17:50 | CON ---
DATE OF CONSULTATION: 10/27/2017 REASON FOR CONSULTATION: Thrombocytopenia. HISTORY OF PRESENT ILLNESS: Ms. Hawk is a very pleasant 76-year-old female with past [facility] history of CLL and ITP who underwent lumbar decompression earlier this month. She unfortunately had an epidural hematoma. Her platelets were around 58,000 after surgery. She was started on high d ose steroids with improvement in her platelet count. She was at the rehab facility where her CBC was being monitored over the last few days. The platelets have become refractory to steroids and droppe d to 55,000 today. She was admitted for treatment for her ITP. PAST MEDICAL HISTORY: 1. CLL. 2. ITP status post splenectomy in 2016. 3. Chronic back pain status post lumbar decompression. 4. Epidural hematoma. PAST SURGICAL HISTORY: 1. Lumbar decompression. 2. Splenectomy. 3. Hysterectomy. 4. Cystectomy. 5. Cholecystectomy. 6. Previous back surgeries. ALLERGIES: To BROVANA, TETRACYCLINE, SULFA, PREVPAC and CIPRO. FAMILY HISTORY: Father had multiple myeloma. She has siblings with a variety of different cancers. SOCIAL HISTORY: , lives with her in [place], grown children. No alcohol, tobacco or illicit drug use. REVIEW OF SYSTEMS: Twelve point review of systems is negative except for noted in HPI. PHYSICAL EXAMINATION: VITAL SIGNS: Currently pending. GENERAL: Well-developed, well-nourished female in no acute distress. HEENT: Normocephalic, atraumatic. Pupils equal and reactive to light. NECK: Supple. CARDIOVASCULAR: Regular rate and rhythm. LUNGS: Clear. ABDOMEN: Soft, nontender, bowel sounds are positive. EXTREMITIES: There is no clubbing, cyanosis or edema. SKIN: No rash. HEMATOLOGIC: No petechia or purpura. NEUROLOGIC: Patient has a focal weakness in her lower extremities, left worse than right. PSYCHIATRIC: The patient is alert and oriented and appropriate. PERTINENT LABORATORY AND X-RAYS: CBC today showed a white count of 33.3, hemoglobin 11.1, hematocrit 33.3, platelet count 55,000, 68% neutrophils, 2% bands, and 27% lymphocytes. ASSESSMENT AND PLAN: 1. 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 2. Discussion: Patient's steroids, we will continue during this hospitalization, she remains on 80 mg daily. We will add IVIG 1 gram per kilogram per day for the next [address] Richards plans to di fridauss next treatment with her prison classification counselor who was in [place]. We have his contact information. She will likely be placed on oral medication such as Nplate or Promacta. We will follow her CBC daily. I thank you for the consult. We will be happy to take care of this very pleasant lady.
[2017-10-27] MEDS ORDERED: OCTAGAM 10% (20 GM/200 ML VIAL) IVPB SCH (18:00)
[2017-10-27 20:07] VITALS: BMI 23.8
[2017-10-27] MEDS: OCTAGAM 10% 60 GM in Admixture Fee 1 EACH IVPB SCH (20:30)
[2017-10-27] MEDS: Potassium Chloride 20 MEQ TAB PO SCH (20:31)
[2017-10-27] MEDS: HYDROcodone/Acetaminophen 5/325 mg Tablet PO PRN (20:31)
[2017-10-27] MEDS ORDERED: Prevnar 13-Val Conj/PF 0.5 ML SYRINGE IM ONE (21:00)
[2017-10-28] MEDS: HYDROcodone/Acetaminophen 5/325 mg Tablet PO PRN ×5 (01:13→18:11)
[2017-10-28 05:16] LABS: Acanthocytes SLIGHT = 1-5 cells (100X) (None Seen); Band 6 % (5-11); Hemoglobin 10.4 g/dL (12.0-16.0); Lymphocytes 23 % (21-51); MDiff Complete? YES; Mean Corpuscular HGB CONC 33.9 g/dL (32.0-36.0); Mean Corpuscular Hemoglobin 32.6 pg (27.0-31.0); Mean Corpuscular Volume 96.3 fl (81.0-99.0); Monocytes 8 % (0-10); Neutrophil 63 % (42-75); PLT Morphology Comment Appears Adequate; Platelet Count 131 thou/uL (130-400); RBC Distribution Width 14.1 % (11.5-14.5); White Blood Cell (WBC) Count 23.7 thou/uL (4.8-10.8)
[2017-10-28] MEDS: predniSONE 20 MG TAB PO SCH (07:59)
--- NOTE | 2017-10-28 14:44 | PDOC.PN ---
- Subjective Encounter Start Date: 10/28/17 Encounter Start Time: 14:39 Ms. Hawk was seen today in follow-up. She is feeling much better. She has been able to lift her left leg off the bed. She does not have any shortness of breath. - Objective Resuscitation Status: Resuscitation Status FULL:Full Resuscitation MAR Reviewed: Yes Vital Signs & Weight: Vital Signs (12 hours) Temp Pulse Resp BP BP BP BP 10/28/17 13:47 97.9 F 64 12 133/80 10/28/17 10:04 149/66 H 152/76 H 159/75 H 10/28/17 08:06 97.7 F 63 12 128/67 10/28/17 08:00 97.7 F 63 12 10/28/17 04:00 97.9 F 65 16 146/73 H Pulse Ox 10/28/17 13:47 96 10/28/17 10:04 10/28/17 08:06 95 10/28/17 08:00 10/28/17 04:00 97 Weight Weight 152 lb I&O: 10/27/17 10/28/17 10/29/17 06:59 06:59 06:59 Intake Total 1960 Balance 1960 Result Diagrams: 10/28/17 03:24 Phys Exam - Physical Examination HEENT: PERRLA Respiratory: no wheezing, no rales, no rhonchi, clear to auscultation bilateral Cardiovascular: RRR, no significant murmur, no rub Gastrointestinal: soft, non-tender, positive bowel sounds Musculoskeletal: no edema Dx/Plan (1) Chronic ITP (idiopathic thrombocytopenia) Code(s): D69.3 - IMMUNE THROMBOCYTOPENIC PURPURA Status: Acute (2) Epidural hematoma Code(s): S06.4X9A - EPIDURAL HEMORRHAGE W LOC OF UNSP DURATION, INIT Status: Acute (3) CLL (chronic lymphocytic leukemia) Code(s): C91.90 - LYMPHOID LEUKEMIA, UNSPECIFIED NOT HAVING ACHIEVED REMISSION Status: Acute - Plan * ITP with acute drop in her platelet count- She is responding well to IVIG * Continue as per Oncology recommendations * Continue PT/OT * Hopefully back to rehab soon.
[2017-10-28] MEDS: OCTAGAM 10% 60 GM in Admixture Fee 1 EACH IVPB SCH (18:11)
[2017-10-28] MEDS: Potassium Chloride 20 MEQ TAB PO SCH (22:03)
[2017-10-29] MEDS: HYDROcodone/Acetaminophen 5/325 mg Tablet PO PRN ×5 (00:43→21:19)
[2017-10-29 05:34] LABS: #Basophils 0.1 thou/uL (0.0-0.2); #Eosinphils 0.1 thou/uL (0.0-0.7); #Lymphocytes 4.9 thou/uL (1.20-3.40); #Monocytes 1.6 thou/uL (0.11-0.59); #Neutrophils 12.5 thou/uL (1.40-6.50); %Basophils 0.8 % (0.0-1.0); %Eosinophils 0.5 % (0.0-10.0); %Lymphocytes 25.4 % (21.0-51.0); %Monocytes 8.3 % (0.0-10.0); %Neutrophils 65.1 % (42.0-75.0); Hemoglobin 10.6 g/dL (12.0-16.0); Large Platelets SLIGHT; MDiff Complete? YES; Mean Corpuscular HGB CONC 33.6 g/dL (32.0-36.0); Mean Corpuscular Hemoglobin 32.5 pg (27.0-31.0); Mean Corpuscular Volume 96.6 fl (81.0-99.0); Mean Platelet Volume 10.8 fL (7.4-10.4); PLT Morphology Comment Appears Adequate; Platelet Count 185 thou/uL (130-400); RBC Distribution Width 14.1 % (11.5-14.5); Red Blood Cell (RBC) Count 3.27 mill/uL (4.20-5.40); White Blood Cell (WBC) Count 19.2 thou/uL (4.8-10.8)
[2017-10-29] MEDS: predniSONE 20 MG TAB PO SCH (08:30)
--- NOTE | 2017-10-29 14:55 | PDOC.PN ---
- Subjective Encounter Start Date: 10/29/17 Encounter Start Time: 14:52 Ms. Hawk was seen today in follow-up. She does not have any complaints. She walked a PT out in the [place]. - Objective Resuscitation Status: Resuscitation Status FULL:Full Resuscitation MAR Reviewed: Yes Vital Signs & Weight: Vital Signs (12 hours) Temp Pulse Resp BP Pulse Ox 10/29/17 11:15 65 146/78 H 10/29/17 08:00 97.9 F 60 12 10/29/17 07:56 97.9 F 60 12 143/62 H 98 Weight Weight 152 lb I&O: 10/28/17 10/29/17 10/30/17 06:59 06:59 06:59 Intake Total 1959 2850 Balance 19590 Result Diagrams: 10/29/17 03:47 Phys Exam - Physical Examination HEENT: PERRLA Respiratory: no wheezing, no rales, no rhonchi, clear to auscultation bilateral Cardiovascular: RRR, no significant murmur, no rub Gastrointestinal: soft, non-tender, positive bowel sounds Musculoskeletal: no edema Incision site looks good, no drainage Dx/Plan (1) Chronic ITP (idiopathic thrombocytopenia) Code(s): D69.3 - IMMUNE THROMBOCYTOPENIC PURPURA Status: Acute (2) Epidural hematoma Code(s): S06.4X9A - EPIDURAL HEMORRHAGE W LOC OF UNSP DURATION, INIT Status: Acute (3) CLL (chronic lymphocytic leukemia) Code(s): C91.90 - LYMPHOID LEUKEMIA, UNSPECIFIED NOT HAVING ACHIEVED REMISSION Status: Acute - Plan * ITP with acute drop in platelet count- much improved with IVIG * Lumbar radiculopathy following epidural hematoma stable * Continue PT/OT * Awaiting return to Rehab- need insurance re-authorization.
[2017-10-29] MEDS: Potassium Chloride 20 MEQ TAB PO SCH (21:19)
[2017-10-30] MEDS: HYDROcodone/Acetaminophen 5/325 mg Tablet PO PRN ×6 (00:24→22:25)
[2017-10-30] MEDS: predniSONE 20 MG TAB PO SCH (08:20)
[2017-10-30 09:53] LABS: Bilirubin Negative (Negative); Blood, Urine Large (Negative); Clarity TURBID (Clear); Glucose, Urine (Dipstick) Negative (Negative); Leukocyte Large (Negative); Nitrite Positive (Negative); Protein, Urine (Dipstick) 300 mg/dL (Neg-Trace); Specific Gravity, Urine 1.021 (1.002-1.036)
[2017-10-30 09:54] LABS: Bacteria/HPF Rare-Few HPF (None Seen); RBC/HPF GREATER THAN 50-TNTC HPF (0-3)
[2017-10-30 09:55] LABS: Pathc Cast-AUWi Flag 3.19 (0-2.49)
[2017-10-30 10:20] LABS: Hyaline Casts/LPF NONE SEEN LPF (0-3 Hyaline); Other Casts/LPF None Seen LPF (0-3 Hyaline)
[2017-10-30] MEDS ORDERED: Milk Of Magnesia 30 ML UDCUP PO PRN (12:23)
[2017-10-30] MEDS ORDERED: Bisacodyl 5 MG TAB PO PRN (12:23)
[2017-10-30] MEDS ORDERED: Nitrofurantoin Macrocrystal 50 MG CAP PO SCH (13:00)
[2017-10-30 13:28] LABS: Hemoglobin 11.1 g/dL (12.0-16.0); Mean Corpuscular HGB CONC 32.5 g/dL (32.0-36.0); Mean Corpuscular Hemoglobin 31.3 pg (27.0-31.0); Mean Corpuscular Volume 96.4 fl (81.0-99.0); Mean Platelet Volume 9.7 fL (7.4-10.4); Platelet Count 236 thou/uL (130-400); RBC Distribution Width 14.1 % (11.5-14.5); Red Blood Cell (RBC) Count 3.55 mill/uL (4.20-5.40); White Blood Cell (WBC) Count 26.6 thou/uL (4.8-10.8)
[2017-10-30 14:00] LABS: Band 1 % (5-11); Lymphocytes 8 % (21-51); MDiff Complete? YES; Neutrophil 91 % (42-75); PLT Morphology Comment Appears Adequate; Polychromasia SLIGHT = 2-3 cells (100X) (0-2/hpf); Target Cells SLIGHT = 2-5 cells (100X) (0-1/hpf)
[2017-10-30] MEDS: Docusate 100 MG CAP PO PRN (14:39)
--- NOTE | 2017-10-30 14:49 | PQF ---
DATE: 10-30-17 ATTN: DR. AUDREY LOZANO Please exercise your independent, professional judgment in responding to the clarification form. Clinical indicators are provided on the bottom of this form for your review Please check appropriate box(s): [ X ] UTI [ ] Contaminated urine specimen without UTI [ ] Other diagnosis [ ] Unable to determine In addition, please specify: Present on Admission (POA): [ ] Yes [ ] No [ X ] Unable to determine For continuity of documentation, please document condition throughout progress notes and discharge summary. Thank You. CLINICAL INDICATORS - SIGNS / SYMPTOMS / LABS URINE 10-30-17: URINE PROTEIN 300 H URINE BLOOD LARGE H URINE NITRITE POSITIVE H UR LEUKOCYTE ESTERASE LARGE H URINE RBC GREATER THAN 50- TNTC URINE WBC GREATER THAN 50- TNTC H RISK FACTORS: H&P: HX OF CLL, ITP, SHE WAS AT REHAB CENTER TREATMENT: (MAR ) MACRODANTIN (This form is maintained as a part of the permanent medical record) 2014 [employer], [employer]. All Rights Reserved ELIESER [email or web address] Office: [phone] ENRIKE
--- NOTE | 2017-10-30 16:00 | PDOC.PN ---
- Subjective Encounter Start Date: 10/30/17 Encounter Start Time: 16:00 Subjective: feels much better.no new complaints - Objective Resuscitation Status: Resuscitation Status FULL:Full Resuscitation MAR Reviewed: Yes Vital Signs & Weight: Vital Signs (12 hours) Temp Pulse Resp BP BP Pulse Ox 10/30/17 11:02 97.8 F 75 12 142/74 H 95 10/30/17 08:00 97.5 F L 64 12 151/71 H 98 Weight Weight 152 lb I&O: 10/29/17 10/30/17 10/31/17 06:59 06:59 06:59 Intake Total 2850 1999 Balance 2850 1999 Result Diagrams: 10/30/17 13:16 Additional Labs: Laboratory Tests 10/27/17 10/28/17 10/29/17 07:15 03:24 03:47 WBC 23.7 H 19.2 H Plt Count 55 L 131 185 Phys Exam - Physical Examination Constitutional: NAD HEENT: PERRLA, moist MMs, sclera anicteric, oral pharynx no lesions Neck: no nodes, no JVD, supple, full ROM Respiratory: no wheezing, no rales, no rhonchi, clear to auscultation bilateral Cardiovascular: RRR, no significant murmur Gastrointestinal: soft, non-tender, no distention, positive bowel sounds Musculoskeletal: no edema, pulses present Neurological: non-focal, normal sensation, moves all 4 limbs Psychiatric: normal affect, A&O x 3 Dx/Plan (1) UTI (urinary tract infection) Status: Acute Qualifiers: Urinary tract infection type: acute cystitis Hematuria presence: with hematuria Qualified Code(s): N30.01 - Acute cystitis with hematuria (2) Acute idiopathic thrombocytopenic purpura Code(s): D69.3 - IMMUNE THROMBOCYTOPENIC PURPURA Status: Acute (3) CLL (chronic lymphocytic leukemia) Code(s): C91.90 - LYMPHOID LEUKEMIA, UNSPECIFIED NOT HAVING ACHIEVED REMISSION Status: Acute (4) Chronic ITP (idiopathic thrombocytopenia) Code(s): D69.3 - IMMUNE THROMBOCYTOPENIC PURPURA Status: Acute (5) Epidural hematoma Code(s): S06.4X9A - EPIDURAL HEMORRHAGE W LOC OF UNSP DURATION, INIT Status: Acute - Plan plan discussed w/ family, DVT proph w/SCDs Platelet stable.post IVIG.cont prednisone w slow taper. -: OP f/u w Oncology -: Start empiric ABx for positive UA.send for culture -: DC to rehab when accpeted/clinically stable -: am labs * . Review of Systems - Review of Systems Constitutional: negative: fever, chills, sweats, weakness, malaise, other ENT: negative: Ear Pain, Ear Discharge, Nose Pain, Nose Discharge, Nose Congestion, Mouth Pain, Mouth Swelling, Throat Pain, Throat Swelling, Other Respiratory: negative: Cough, Dry, Shortness of Breath, Hemoptysis, SOB with Excertion, Pleuritic Pain, Sputum, Wheezing Cardiovascular: negative: chest pain, palpitations, orthopnea, paroxysmal nocturnal dyspnea, edema, light headedness, other Gastrointestinal: negative: Nausea, Vomiting, Abdominal Pain, Diarrhea, Constipation, Melena, Hematochezia, Other Genitourinary: Dysuria, Hematuria. negative: Frequency, Incontinence, Retention , Other Musculoskeletal: negative: Neck Pain, Shoulder Pain, Arm Pain, Back Pain, Hand Pain, Leg Pain, Foot Pain, Other Skin: negative: Rash, Lesions, Altaf, Bruising, Other Neurological: negative: Weakness, Numbness, Incoordination, Change in Speech, Confusion, Seizures, Other - Medications/Allergies Allergies/Adverse Reactions: Allergies Allergy/AdvReac Type Severity Reaction Status Date / Time arformoterol [From Brovana] Allergy can't Verified 10/15/17 04:49 breathe ciprofloxacin [From Cipro] Allergy severe Verified 10/15/17 04:49 headaches clarithromycin Allergy severe Verified 10/15/17 04:49 headaches Sulfa (Sulfonamide Allergy severe Verified 10/15/17 04:49 Antibiotics) headache Tetracyclines Allergy severe Verified 10/15/17 04:49 headaches and stomach cramps Medications: Current Medications Acetaminophen (Tylenol) 650 mg PO Q4H PRN PRN Reason: Headache/Fever or Pain Hydrocodone Bitart/Acetaminophen ([place] 5/325) 1 tab PO Q4H PRN PRN Reason: Pain Last Admin: 10/30/17 14:37 Dose: 1 tab Al Hydroxide/Mg Hydroxide (Maalox) 30 ml PO Q6H PRN PRN Reason: Heartburn or Indigestion Bisacodyl (Dulcolax) 10 mg PO DAILYPRN PRN PRN Reason: Constipation Chlorthalidone (Hygroton) 50 mg PO QAM [facility] Last Admin: 10/30/17 08:20 Dose: 50 mg Docusate Sodium (Colace) 100 mg PO DAILYPRN PRN PRN Reason: Constipation Last Admin: 10/30/17 14:39 Dose: 100 mg Magnesium Hydroxide (Milk Of Magnesium) 30 ml PO DAILYPRN PRN PRN Reason: Constipation Nitrofurantoin Macrocrystals (Macrodantin) 100 mg PO BID [facility] Pantoprazole Sodium (Protonix) 40 mg PO DAILY [facility] Last Admin: 10/30/17 08:21 Dose: 40 mg Potassium Chloride (K-Dur) 20 meq PO HS [facility] Last Admin: 10/29/17 21:19 Dose: 20 meq Prednisone (Prednisone) 60 mg PO QAM[facility] Last Admin: 10/30/17 08:20 Dose: 60 mg Temazepam (Restoril) 15 mg PO HSPRN PRN PRN Reason: Insomnia
[2017-10-30] MEDS: Potassium Chloride 20 MEQ TAB PO SCH (20:10)
[2017-10-30] MEDS: Nitrofurantoin Macrocrystal 50 MG CAP PO SCH (20:10)
[2017-10-31] MEDS: HYDROcodone/Acetaminophen 5/325 mg Tablet PO PRN ×4 (04:27→19:47)
[2017-10-31] MEDS: Nitrofurantoin Macrocrystal 50 MG CAP PO SCH ×2 (08:42→19:43)
[2017-10-31] MEDS: predniSONE 20 MG TAB PO SCH (08:42)
[2017-10-31] MEDS ORDERED: predniSONE 20 MG TAB PO SCH ×2 (09:07→09:15)
--- NOTE | 2017-10-31 13:34 | PDOC.PN ---
- Subjective Encounter Start Date: 10/31/17 Encounter Start Time: 13:32 Subjective: feels good. no new complaints -: no bleeding.no fever/chills/pain/dysuria - Objective Resuscitation Status: Resuscitation Status FULL:Full Resuscitation Vital Signs & Weight: Vital Signs (12 hours) Temp Pulse Resp BP Pulse Ox 10/31/17 08:00 97.9 F 77 14 137/57 L 99 Weight Weight 152 lb I&O: 10/30/17 10/31/17 11/01/17 06:59 06:59 06:59 Intake Total 1999 1949 Balance 1999 1949 Result Diagrams: 10/30/17 13:16 Additional Labs: Microbiology 10/30/17 08:45 Urine clean catch Urine Culture - Preliminary Gram Negative Marky Phys Exam - Physical Examination Constitutional: NAD tired looking HEENT: PERRLA, moist MMs, sclera anicteric, oral pharynx no lesions Neck: no nodes, no JVD, supple, full ROM Respiratory: no wheezing, no rales, no rhonchi, clear to auscultation bilateral Cardiovascular: RRR, no significant murmur Gastrointestinal: soft, non-tender, no distention, positive bowel sounds Musculoskeletal: no edema, pulses present Neurological: non-focal, normal sensation, moves all 4 limbs Psychiatric: normal affect, A&O x 3 Skin: no rash Dx/Plan (1) UTI (urinary tract infection) Status: Acute Qualifiers: Urinary tract infection type: acute cystitis Hematuria presence: with hematuria Qualified Code(s): N30.01 - Acute cystitis with hematuria (2) Acute idiopathic thrombocytopenic purpura Code(s): D69.3 - IMMUNE THROMBOCYTOPENIC PURPURA Status: Acute (3) CLL (chronic lymphocytic leukemia) Code(s): C91.90 - LYMPHOID LEUKEMIA, UNSPECIFIED NOT HAVING ACHIEVED REMISSION Status: Acute (4) Chronic ITP (idiopathic thrombocytopenia) Code(s): D69.3 - IMMUNE THROMBOCYTOPENIC PURPURA Status: Acute (5) Epidural hematoma Code(s): S06.4X9A - EPIDURAL HEMORRHAGE W LOC OF UNSP DURATION, INIT Status: Acute - Plan plan discussed w/ family, PT/OT, out of bed/ambulate, DVT proph w/SCDs Platelets counts improved post IVIG.cont prednisone.taper dose. -: OP F/U w Hematology/Onc.? Promacta -: Awaiting rehab approval.HD stable & can be DCed if accpeted -: plan discussed w Pt & who are appreciative of care given -: AM labs, if pt still here * .follow final urine cx results.cont macrodantin for now Review of Systems - Review of Systems Constitutional: weakness. negative: fever, chills, sweats, malaise, other ENT: negative: Ear Pain, Ear Discharge, Nose Pain, Nose Discharge, Nose Congestion, Mouth Pain, Mouth Swelling, Throat Pain, Throat Swelling, Other Respiratory: negative: Cough, Dry, Shortness of Breath, Hemoptysis, SOB with Excertion, Pleuritic Pain, Sputum, Wheezing Cardiovascular: negative: chest pain, palpitations, orthopnea, paroxysmal nocturnal dyspnea, edema, light headedness, other Gastrointestinal: negative: Nausea, Vomiting, Abdominal Pain, Diarrhea, Constipation, Melena, Hematochezia, Other Genitourinary: negative: Dysuria, Frequency, Incontinence, Hematuria, Retention , Other Musculoskeletal: negative: Neck Pain, Shoulder Pain, Arm Pain, Back Pain, Hand Pain, Leg Pain, Foot Pain, Other Skin: negative: Rash, Lesions, Altaf, Bruising, Other Neurological: negative: Weakness, Numbness, Incoordination, Change in Speech, Confusion, Seizures, Other - Medications/Allergies Allergies/Adverse Reactions: Allergies Allergy/AdvReac Type Severity Reaction Status Date / Time arformoterol [From Brovana] Allergy can't Verified 10/15/17 04:49 breathe ciprofloxacin [From Cipro] Allergy severe Verified 10/15/17 04:49 headaches clarithromycin Allergy severe Verified 10/15/17 04:49 headaches Sulfa (Sulfonamide Allergy severe Verified 10/15/17 04:49 Antibiotics) headache Tetracyclines Allergy severe Verified 10/15/17 04:49 headaches and stomach cramps Medications: Current Medications Acetaminophen (Tylenol) 650 mg PO Q4H PRN PRN Reason: Headache/Fever or Pain Hydrocodone Bitart/Acetaminophen ([place] 5/325) 1 tab PO Q4H PRN PRN Reason: Pain Last Admin: 10/31/17 13:01 Dose: 1 tab Al Hydroxide/Mg Hydroxide (Maalox) 30 ml PO Q6H PRN PRN Reason: Heartburn or Indigestion Last Admin: 10/30/17 17:02 Dose: 30 ml Bisacodyl (Dulcolax) 10 mg PO DAILYPRN PRN PRN Reason: Constipation Chlorthalidone (Hygroton) 50 mg PO QAM [facility] Last Admin: 10/31/17 08:42 Dose: 50 mg Docusate Sodium (Colace) 100 mg PO DAILYPRN PRN PRN Reason: Constipation Last Admin: 10/30/17 14:39 Dose: 100 mg Magnesium Hydroxide (Milk Of Magnesium) 30 ml PO DAILYPRN PRN PRN Reason: Constipation Nitrofurantoin Macrocrystals (Macrodantin) 100 mg PO BID [facility] Last Admin: 10/31/17 08:42 Dose: 100 mg Pantoprazole Sodium (Protonix) 40 mg PO DAILY [facility] Last Admin: 10/31/17 08:42 Dose: 40 mg Potassium Chloride (K-Dur) 20 meq PO HS [facility] Last Admin: 10/30/17 20:10 Dose: 20 meq Prednisone (Prednisone) 40 mg PO QAM[facility] Temazepam (Restoril) 15 mg PO HSPRN PRN PRN Reason: Insomnia
[2017-10-31] MEDS: Potassium Chloride 20 MEQ TAB PO SCH (19:47)
[2017-10-31] MEDS: Docusate 100 MG CAP PO PRN (19:54)
[2017-11-01] MEDS: HYDROcodone/Acetaminophen 5/325 mg Tablet PO PRN ×4 (00:24→22:04)
[2017-11-01 05:22] LABS: Anion Gap 10 mmol/L (10-20); BUN (Urea Nitrogen) 17 mg/dL (9.8-20.1); Calc. Creatinine Clearance 78 mL/min (70-130); Calcium 9.5 mg/dL (7.8-10.44); Carbon Dioxide 31 mmol/L (23-31); Chloride 95 mmol/L (98-107); Estimated GFR-MDRD 83; Glucose 97 mg/dL (83-110); Sodium 133 mmol/L (136-145)
[2017-11-01 05:30] LABS: Potassium 2.7 mmol/L (3.5-5.1)
[2017-11-01 05:35] LABS: Hemoglobin 11.3 g/dL (12.0-16.0); Lymphocytes 24 % (21-51); MDiff Complete? YES; Mean Corpuscular HGB CONC 33.5 g/dL (32.0-36.0); Mean Corpuscular Hemoglobin 32.6 pg (27.0-31.0); Mean Corpuscular Volume 97.2 fl (81.0-99.0); Monocytes 9 % (0-10); Neutrophil 67 % (42-75); PLT Morphology Comment Appears Adequate; Platelet Count 202 thou/uL (130-400); RBC Distribution Width 14.1 % (11.5-14.5); Red Blood Cell (RBC) Count 3.47 mill/uL (4.20-5.40); White Blood Cell (WBC) Count 17.3 thou/uL (4.8-10.8)
[2017-11-01] MEDS: Potassium Chloride 20 MEQ TAB PO SCH ×3 (06:09→22:04)
[2017-11-01] MEDS: Nitrofurantoin Macrocrystal 50 MG CAP PO SCH (08:51)
[2017-11-01] MEDS: predniSONE 20 MG TAB PO SCH (08:52)
--- NOTE | 2017-11-01 11:46 | PDOC.PN ---
- Subjective Encounter Start Date: 11/01/17 Encounter Start Time: 11:45 Subjective: feels weak and tired. - Objective Resuscitation Status: Resuscitation Status FULL:Full Resuscitation MAR Reviewed: Yes Vital Signs & Weight: Vital Signs (12 hours) Temp Pulse Resp BP Pulse Ox 11/01/17 07:43 97.7 F 68 16 11/01/17 07:39 97.7 F 68 16 148/76 H 97 Weight Weight 152 lb I&O: 10/31/17 11/01/17 11/02/17 06:59 06:59 06:59 Intake Total 1950 700 Balance 1950 700 Result Diagrams: 11/01/17 04:27 11/01/17 04:27 Additional Labs: Microbiology 10/30/17 08:45 Urine clean catch Urine Culture - Preliminary Presumptive Pseudomonas Phys Exam - Physical Examination Constitutional: NAD HEENT: PERRLA, moist MMs, sclera anicteric, oral pharynx no lesions Neck: no nodes, no JVD, supple, full ROM Respiratory: no wheezing, no rales, no rhonchi, clear to auscultation bilateral Cardiovascular: RRR, no significant murmur, no rub, gallop Gastrointestinal: soft, non-tender, no distention, positive bowel sounds Musculoskeletal: no edema, pulses present Neurological: non-focal, normal sensation, moves all 4 limbs Psychiatric: normal affect, A&O x 3 Skin: no rash Dx/Plan (1) UTI (urinary tract infection) Status: Acute Qualifiers: Urinary tract infection type: acute cystitis Hematuria presence: with hematuria Qualified Code(s): N30.01 - Acute cystitis with hematuria (2) Acute idiopathic thrombocytopenic purpura Code(s): D69.3 - IMMUNE THROMBOCYTOPENIC PURPURA Status: Acute (3) CLL (chronic lymphocytic leukemia) Code(s): C91.90 - LYMPHOID LEUKEMIA, UNSPECIFIED NOT HAVING ACHIEVED REMISSION Status: Acute (4) Chronic ITP (idiopathic thrombocytopenia) Code(s): D69.3 - IMMUNE THROMBOCYTOPENIC PURPURA Status: Acute (5) Epidural hematoma Code(s): S06.4X9A - EPIDURAL HEMORRHAGE W LOC OF UNSP DURATION, INIT Status: Acute - Plan DVT proph w/SCDs platelets a little lower today.cont to monitor.cont prednisosne. -: repalce and recheck Potassium. -: urine growing Pseudomonas...may need IV ABx.sensistivities pending -: daily labs needed for now. -: rehab eval.DC when approved * . Review of Systems - Review of Systems Constitutional: weakness, malaise. negative: fever, chills, sweats, other ENT: negative: Ear Pain, Ear Discharge, Nose Pain, Nose Discharge, Nose Congestion, Mouth Pain, Mouth Swelling, Throat Pain, Throat Swelling, Other Respiratory: negative: Cough, Dry, Shortness of Breath, Hemoptysis, SOB with Excertion, Pleuritic Pain, Sputum, Wheezing Cardiovascular: negative: chest pain, palpitations, orthopnea, paroxysmal nocturnal dyspnea, edema, light headedness, other Gastrointestinal: Nausea Genitourinary: negative: Dysuria, Frequency, Incontinence, Hematuria, Retention , Other Musculoskeletal: negative: Neck Pain, Shoulder Pain, Arm Pain, Back Pain, Hand Pain, Leg Pain, Foot Pain, Other Skin: negative: Rash, Lesions, Altaf, Bruising, Other Neurological: negative: Weakness, Numbness, Incoordination, Change in Speech, Confusion, Seizures, Other - Medications/Allergies Allergies/Adverse Reactions: Allergies Allergy/AdvReac Type Severity Reaction Status Date / Time arformoterol [From Brovana] Allergy can't Verified 10/15/17 04:49 breathe ciprofloxacin [From Cipro] Allergy severe Verified 10/15/17 04:49 headaches clarithromycin Allergy severe Verified 10/15/17 04:49 headaches Sulfa (Sulfonamide Allergy severe Verified 10/15/17 04:49 Antibiotics) headache Tetracyclines Allergy severe Verified 10/15/17 04:49 headaches and stomach cramps Medications: Current Medications Acetaminophen (Tylenol) 650 mg PO Q4H PRN PRN Reason: Headache/Fever or Pain Hydrocodone Bitart/Acetaminophen (Searchlight 5/325) 1 tab PO Q4H PRN PRN Reason: Pain Last Admin: 11/01/17 07:42 Dose: 1 tab Al Hydroxide/Mg Hydroxide (Maalox) 30 ml PO Q6H PRN PRN Reason: Heartburn or Indigestion Last Admin: 10/30/17 17:02 Dose: 30 ml Bisacodyl (Dulcolax) 10 mg PO DAILYPRN PRN PRN Reason: Constipation Chlorthalidone (Hygroton) 50 mg PO QAM [facility] Last Admin: 11/01/17 08:52 Dose: 50 mg Docusate Sodium (Colace) 100 mg PO DAILYPRN PRN PRN Reason: Constipation Last Admin: 10/31/17 19:54 Dose: 100 mg Magnesium Hydroxide (Milk Of Magnesium) 30 ml PO DAILYPRN PRN PRN Reason: Constipation Nitrofurantoin Macrocrystals (Macrodantin) 100 mg PO BID [facility] Last Admin: 11/01/17 08:51 Dose: 100 mg Pantoprazole Sodium (Protonix) 40 mg PO DAILY [facility] Last Admin: 11/01/17 08:52 Dose: 40 mg Potassium Chloride (K-Dur) 20 meq PO HS [facility] Last Admin: 10/31/17 19:47 Dose: 20 meq Potassium Chloride (K-Dur) 40 meq PO 0600,1200 [facility] Stop: 11/01/17 12:01 Last Admin: 11/01/17 06:09 Dose: 40 meq Prednisone (Prednisone) 40 mg PO QAM-WM [facility] Last Admin: 11/01/17 08:52 Dose: 40 mg Temazepam (Restoril) 15 mg PO HSPRN PRN PRN Reason: Insomnia
[2017-11-01] MEDS: Meropenem 1 GM in Sterile Water 20 ML SLOW IVP SCH ×2 (13:24→22:06)
[2017-11-01] MEDS ORDERED: Meropenem 1 GM in Sodium Chloride 0.9% 100 ML IVPB SCH (14:00)
[2017-11-02] MEDS: HYDROcodone/Acetaminophen 5/325 mg Tablet PO PRN ×2 (02:13→10:01)
[2017-11-02] MEDS: Meropenem 1 GM in Sterile Water 20 ML SLOW IVP SCH (05:59)
[2017-11-02 06:10] LABS: Anion Gap 9 mmol/L (10-20); BUN (Urea Nitrogen) 17 mg/dL (9.8-20.1); Calc. Creatinine Clearance 78 mL/min (70-130); Carbon Dioxide 29 mmol/L (23-31); Chloride 98 mmol/L (98-107); Estimated GFR-MDRD 83; Potassium 3.1 mmol/L (3.5-5.1); Sodium 133 mmol/L (136-145)
[2017-11-02 06:11] LABS: Calcium 9.3 mg/dL (7.8-10.44); Glucose 91 mg/dL (83-110)
[2017-11-02 06:25] LABS: Band 2 % (5-11); Lymphocytes 30 % (21-51); MDiff Complete? YES; Mean Corpuscular Hemoglobin 32.3 pg (27.0-31.0); Mean Corpuscular Volume 97.7 fl (81.0-99.0); Metamyelocyte 1 % (0-0); Monocytes 7 % (0-10); Neutrophil 52 % (42-75); PLT Morphology Comment Appears Adequate; Platelet Count 146 thou/uL (130-400); RBC Morphology Normal; Reactive Lymphocytes 8 % (0-10); Red Blood Cell (RBC) Count 3.39 mill/uL (4.20-5.40); White Blood Cell (WBC) Count 15.2 thou/uL (4.8-10.8)
[2017-11-02] MEDS ORDERED: Potassium Chloride 20 MEQ TAB PO SCH (07:15)
[2017-11-02] MEDS ORDERED: predniSONE 20 MG TAB PO SCH (08:45)
[2017-11-02] MEDS: predniSONE 20 MG TAB PO SCH (09:02)
--- NOTE | 2017-11-02 12:50 | DIS ---
DATE OF ADMISSION: 10/27/2017 DATE OF DISCHARGE: 11/02/2017 DISCHARGE DISPOSITION: [facility]. DISCHARGE DIAGNOSES: 1. Acute on chronic idiopathic thrombocytopenic purpura. 2. Urinary tract infection. 3. History of chronic idiopathic thrombocytopenic purpura. 4. Recent epidural hematoma. 5. History of chronic lymphocytic leukemia. DISCHARGE MEDICATIONS: As follows, prednisone 60 mg daily, Protonix 40 mg daily while she is on the steroids, meropenem 1 gram every 8 hours for 5 more days, cholecalciferol daily, potassium chloride 6 0 mEq daily that is her home dose, vitamin C daily, vitamin B complex daily, chlorthalidone 50 mg in the morning. CONSULTATIONS: In-house, Hematology/Oncology, Dr. Richards. PROCEDURES: In the hospital include IVIG administration. HISTORY OF PRESENT ILLNESS: Ms. Hawk is a very pleasant 76-year-old female with past medical histor y of CLL and ITP, status post splenectomy in 2016, who presented from [facility] for worsening platelet count. The patient was recently admitted to our facility earlier this month and u nderwent lumbar decompression, which was complicated with an epidural hematoma needing evacuation. H er platelet count was around 58,000 after the surgery. She was started on high-dose steroids and was discharged to rehabilitation. Over at the rehab, she became refractory to steroids treatment and co unts dropped to 55,000 and she was admitted for treatment for her ITP. Hematology/Oncology was consu lted. Please see admission history and physical for further details. HOSPITAL COURSE: The patient was treated with IVIG 1 gram per kilogram for 2 days and Oncology follo wed along. The patient had a significant improvement in her platelet count. It went up to 131 the n ext day and the highest was 236. She has slowly started to drift back down. Her count this morning was 146. She was also continued on high-dose steroids. She was also found to have a urinary tract infection and the culture showed E. coli, which was less t christy 10,000, but also Pseudomonas, which showed greater than 100,000 and thankfully it was rather pans ensitive. Her antibiotic initially was started is nitrofurantoin, which was changed to IV meropenem once the cultures and sensitivity were back. She was finished the course of IV antibiotic at rehab f acility. Prior to her discharge, her platelet count was discussed with on-call oncologist, Dr. Whitaker. He s uggested that she stay on high-dose steroids at least 1 mg/kg and she is being discharged on 60 mg of prednisone at this time. The plan is for her to get her CBC checked the day after tomorrow with res ults to Dr. Richards. Dr. Major also will follow up her counts over at the rehabilitation. The patient had a significant hypokalemia while she was here, which was helped after restarting her h ome dosage of potassium chloride. This is secondary to her diuretic use on a daily basis. Her potas sium was 3.1 earlier this morning, for which she has received a total of 40 mEq potassium chloride th is morning and will receive another 20 tonight. After much daily dialing and having to deal with her insurance, she was approved once again to return to [facility] and the patient and her was agreeable to the plan. PHYSICAL EXAMINATION: She was seen and examined prior to discharge. VITAL SIGNS: Temperature 98.2, pulse of 90, respirations 16, saturating 96% on room air, blood press ure 120/80. GENERAL: In no acute distress, awake, alert, oriented x3. CHEST: Clear to auscultation without any wheezing, rales, or rhonchi. Rhythm is regular without any murmur, rubs, or gallops. ABDOMEN: Soft, nontender, nondistended. EXTREMITIES: Free of any cyanosis, clubbing, or edema. LABORATORY EXAMINATION: CBC shows WBCs at 15.2, hemoglobin 11, platelet count of 146. Serum soil chemist marcel: Sodium 133, potassium 3.1. Urine culture showing Pseudomonas and E. coli as above, but E. col i is less than 10,000. At this time, she is back to her baseline, but we will need close monitoring of her platelet count. She has no evidence of any active bleed at this time. She will follow up with Dr. Richards closely an d most likely will be started on Promacta to keep her platelet count up in the near future. Discharg e plan was discussed with the patient and her , who are very appreciative of the staffs and ar e very pleased with the care received. They verbalized understanding. All questions were answered. Total time spent in the discharge of this patient 35 minutes including [id number] interaction.
[2017-11-02 13:18] VITALS: BP 157/80; TEMP 97.7
== END 2017-11-02 13:08 | DRG 813 ==
LOC: T4-A 14:38
PROVIDERS: ADMIT Internal Medicine; ATTEND Internal Medicine
DX: D69.3 Immune thrombocytopenic purpura (principal); C91.10 Chronic lymphocytic leukemia of B-cell type not having achieved remission; N39.0 Urinary tract infection, site not specified; B96.20 Unspecified Escherichia coli [E. coli] as the cause of diseases classified elsewhere; E87.6 Hypokalemia; Z75.1 Person awaiting admission to adequate facility elsewhere
CPT/HCPCS: 36415; 80048; 81003; 81015; 83735; 85025; 87086; 87186; A4216; G8978-GP-CL; G8979-GP-CK; G8987-GO-CK; G8988-GO-CI; J1568; J2185; J7506

== ENCOUNTER 2019-07-24 11:15 | Inpatient (IN) | payer MEDICARE ==
[~2019-07-24 11:15] MED LIST: Dexamethasone 10 MG/ML VIAL SLOW IVP SCH
[2019-07-24 11:50] VITALS: BMI 21.1
--- NOTE | 2019-07-24 12:20 | PDOC.FPRHP ---
- History of Present Illness Chief Complaint: thrombocytopenia History of Present Illness: Patient presents today as a direct admit from oncology for ITP with a platelet count of 4k. Patient reports that she is feeling well. Occasionally feels light-headed, denies falls. Also reports that she feels fatigued, and feels SOB with exertion. Reports that she had one nose bleed 6 weeks ago that lasted several hours, and another 2 days ago that lasted 2 hours and was described as "heavy bleeding." She denies any hematemesis, hematuria, hematochezia, or melena. Denies n/v/d. Reports that her arms and legs are bruised chronically, and she has a chronically numb thigh and part of her lower leg on the left from a previous back surgery. PCP: Michaela Loco - Allergies/Adverse Reactions Allergies Allergy/AdvReac Type Severity Reaction Status Date / Time arformoterol [From Brovana] Allergy can't Verified 10/15/17 04:49 breathe ciprofloxacin [From Cipro] Allergy severe Verified 10/15/17 04:49 headaches clarithromycin Allergy severe Verified 10/15/17 04:49 headaches Sulfa (Sulfonamide Allergy severe Verified 10/15/17 04:49 Antibiotics) headache Tetracyclines Allergy severe Verified 10/15/17 04:49 headaches and stomach cramps - Home Medications Medication Instructions Recorded Confirmed Type Chlorthalidone [Hygroton] 1 tab PO QAM 10/11/17 07/24/19 History Cholecalciferol (Vitamin D3) 1,000 unit PO BID 10/11/17 07/24/19 History [Vitamin D3] Coral Calcium W/ Vit D 2 tab PO DAILY 10/11/17 07/24/19 History Herbal Drugs [Colon Herbal 1 tab PO DAILY 10/11/17 07/24/19 History Cleanser] [place]-Acetamin 1 - 2 tab PO ASDIR PRN 10/11/17 07/24/19 History Potassium Chloride [Klor-Con] 40 meq PO QAM 10/11/17 07/24/19 History Vit C/E/Zn/Coppr/Lutein/Zeaxan 2 capsule PO DAILY 10/11/17 07/24/19 History [PreserVision Areds 2 Softgel] Vitamin B Complex Vit C No.4 1 tab PO DAILY 10/11/17 07/24/19 History [Super B Complex] Potassium Chloride [K-Dur] 20 meq PO HS 10/15/17 07/24/19 History predniSONE 40 mg PO QAM-WM 60 Days #60 tab 10/22/17 07/24/19 Rx Meropenem [Merrem] 1 gm SLOW IVP Q8HR 5 Days vial 11/02/17 07/24/19 Rx Pantoprazole [Protonix] 40 mg PO DAILY #30 tab 11/02/17 07/24/19 Rx predniSONE 60 mg PO QAM-WM #14 tab 11/02/17 07/24/19 Rx - History PMHx: CLL, ITP PSHx: hysterectomy, L foot cyst removal, total face lift, cholecystectomy, back surgery x 3, hernia repair, L retina repair, R foot cyts removal, dacryocystorhinostomy, lacricath, R eye retina reapir, splenectomy FHx: non-contributory, father had MM Social: negative - Review of Systems General: reports: fatigue. denies: night sweats Eyes: denies: eye pain, vision changes ENT: denies: nasal congestion, rhinorrhea Respiratory: reports: cough (dry), shortness of breath (with exertion) Cardiovascular: denies: chest pain, palpitation, edema Gastrointestinal: denies: nausea, vomiting, diarrhea Genitourinary: denies: incontinence, dysuria Skin: reports: other (bruising on arms/legs) Musculoskeletal: denies: tenderness, swelling Neurological: reports: numbness (right thigh/parts of lower leg). denies: syncope Psychological: denies: anxiety, depression - Vital signs BP: [147/88] HR: [71] RR: [18] Tmax: [97.5] Pox: [98]% on [RA] Wt: [63.0 kg] - Physical Exam Constitutional: NAD, awake, alert and oriented, well developed HEENT: EOMI, conjunctiva clear, grossly normal hearing, normal nasal mucosa Neck: supple, FROM, trachea midline Chest: no-tender to palpation, no lesions Heart: RRR, normal S1/S2, no murmurs/rubs/gallops Lungs: CTAB, no respiratory distress Abdomen: soft, non-tender, bowel sounds present Musculoskeletal: normal structure, normal tone, ROM grossly normal Neurological: other (numbness left thigh/parts of left leg) Skin: good turgor, no jaundice, other (bruising on arms/legs) Heme/Lymphatic: other (bruising on arms/legs) Psychiatric: normal mood and affect, good judgment and insight FMR H&P: Results - Labs Result Diagrams: 07/25/19 04:08 07/25/19 04:08 Additional comment: Direct admit for platelet count of 4k FMR H&P: A/P - Problem List (1) CLL (chronic lymphocytic leukemia) Status: Acute Code(s): C91.90 - LYMPHOID LEUKEMIA, UNSPECIFIED NOT HAVING ACHIEVED REMISSION (2) Chronic ITP (idiopathic thrombocytopenia) Status: Acute Code(s): D69.3 - IMMUNE THROMBOCYTOPENIC PURPURA - Plan Patient is a 78F that was directly admitted to the hospital for ITP, with a reported platelet count of 4k. #ITP -reported platelet count of 4k -per onc recs, start patient on IVIG, 40 IV dexamethasone x 2 days -patient reported nose bleed 2 days ago, will continue to monitor for bleeding and treat accordingly -CBC in the am -will continue to monitor platelet function #CLL -direct admit from onc, they are aware she is here -appreciate recs #HTN -continue home meds Diet: regular Code: Full Dispo: Inpatient for IVIG and IV steroids for ITP FMR H&P: Upper Level - Pertinent history 78 yo F w/ CLL and history of ITP presents for ITP diagnosed by her oncology team and sent for direct admission. Pt reports increased easy bruising. Does not endorse hemtochezia, melena , hemoptysis, epistaxis. Per pt mst recent platelet count today 4k. Denies acute bleeding episodes, weakness, numbness, tingling. - Pertinent findings ROS: As above PE: GEN: NAD, sitting comfrotably in bed HEENT: NCAT, PERRLA, EOMI CV: RRR No MRG Resp: CTA bl no WRR Abd: Soft NTND bsx4 NeuroL No focal deficit Heme: scattered bruises over skin surface without evidence of hematoma Skin: Scattered echymosis, no petichiae - Plan Date/Time: 07/24/19 1216 IMk, , have evaluated this patient and agree with findings/ plan as outlined by commercial internship resident. Pertinent changes/additions are listed here. 1) ITP - will give 1g/kg IVIg q24 hrs x2 and steroids 40mg IV dex X2 - am hemagram and base met - consult Onc, appreicate recommendations - If s/s of bleeding present, low threshold for platelet transfusion 2) CLL - managed per onc, appreciate recs Dispo: Curently stable, critically low platelets. Will admit to IP onc for steroids and IVIG. AM labs. Onc consulted, appreciate recs. Addendum - Attending - Attending Attestation Date/Time: 07/24/19 [id number] I personally evaluated the patient and discussed the management with Dr. Penn. I agree with the History, Examination, Assessment and Plan documented above with any addition or exceptions noted below. The patient is being admitted from the oncology office for ITP. She has a history of itp and has had recent nosebleeds. She recently started rituxan and her plt are 4,000 today. She will be treated with IVIG and steroids. Trend plt. Monitor for bleeding. Onc is consulted. Per report her cll is worsening and she will start treatment soon. Continue home meds.
[2019-07-24] MEDS ORDERED: Ondansetron ODT 4 MG TAB PO PRN (12:27)
[2019-07-24] MEDS ORDERED: Acetaminophen 325 MG TAB PO PRN (12:27)
[2019-07-24] MEDS ORDERED: Famotidine 20 MG TAB PO PRN (12:27)
[2019-07-24] MEDS ORDERED: Dexamethasone 10 MG/ML VIAL SLOW IVP SCH (13:45)
[2019-07-24] MEDS: OCTAGAM 10% 60 GM in Admixture Fee 1 EACH IVPB SCH (13:50)
[2019-07-24] MEDS: HYDROcodone/Acetaminophen 5/325 mg Tablet PO PRN (20:20)
[2019-07-25] MEDS ORDERED: Diabetic Tussin 200 MG/10 ML UDCUP PO PRN (00:15)
[2019-07-25 04:43] LABS: ALT (SGPT) 19 U/L (8-55); AST (SGOT) 14 U/L (5-34); Albumin 3.8 g/dL (3.4-4.8); Alkaline Phosphatase 78 U/L (40-110); Anion Gap 11 mmol/L (10-20); BUN (Urea Nitrogen) 15 mg/dL (9.8-20.1); Bilirubin, Total 0.8 mg/dL (0.2-1.2); Calc. Creatinine Clearance 62 mL/min (70-130); Calcium 9.6 mg/dL (7.8-10.44); Carbon Dioxide 24 mmol/L (23-31); Chloride 103 mmol/L (98-107); Estimated GFR-MDRD 73; Glucose 154 mg/dL (83-110); Protein, Total 7.8 g/dL (6.0-8.3); Sodium 135 mmol/L (136-145)
[2019-07-25 04:51] LABS: Potassium 2.8 mmol/L (3.5-5.1)
[2019-07-25 04:57] LABS: #Basophils 0.1 thou/uL (0.0-0.2); #Lymphocytes 2.7 thou/uL (1.20-3.40); #Monocytes 0.4 thou/uL (0.11-0.59); #Neutrophils 15.4 thou/uL (1.40-6.50); %Basophils 0.3 % (0.0-1.0); %Lymphocytes 14.5 % (21.0-51.0); %Monocytes 2.3 % (0.0-10.0); %Neutrophils 82.8 % (42.0-75.0); Hemoglobin 12.7 g/dL (12.0-16.0); Large Platelets SLIGHT; MDiff Complete? YES; Mean Corpuscular HGB CONC 33.8 g/dL (32.0-36.0); Mean Corpuscular Hemoglobin 30.2 pg (27.0-31.0); Mean Corpuscular Volume 89.3 fL (78.0-98.0); Mean Platelet Volume 15.3 fL (7.4-10.4); Platelet Count 75 thou/uL (130-400); Platelet Morphology Comment Appears Decreased; RBC Distribution Width 12.9 % (11.5-14.5); Red Blood Cell (RBC) Count 4.18 mill/uL (4.20-5.40); White Blood Cell (WBC) Count 18.6 thou/uL (4.8-10.8)
--- NOTE | 2019-07-25 05:37 | PDOC.FM ---
- Subjective Subjective: Mrs. Hawk was resting comfortably with her daughter at her bedside at the time of evaluation. Her only complaint this morning was a mild headache, for which she did not wish to receive any medication. She denied any subsequent episodes of bleeding or bruising, and specifically denied headaches, chest pain, shortness of breath or N/V/D. - Objective Vital Signs & Weight: Vital Signs (12 hours) Temp Pulse Resp BP BP Pulse Ox 07/24/19 23:48 97.6 F 72 16 133/66 95 07/24/19 20:30 98.6 F 78 16 140/65 94 L Weight Weight 63.049 kg I&O: 07/23/19 07/24/19 07/25/19 06:59 06:59 06:59 Intake Total 1590 Balance 1590 Result Diagrams: 07/25/19 04:08 07/25/19 04:08 Phys Exam - Physical Examination Constitutional: NAD HEENT: moist MMs, sclera anicteric, oral pharynx no lesions Neck: no nodes, supple, full ROM Respiratory: no wheezing, no rales, no rhonchi, clear to auscultation bilateral Cardiovascular: RRR, no significant murmur, no rub Gastrointestinal: soft, non-tender, no distention, positive bowel sounds Musculoskeletal: no edema, pulses present Neurological: non-focal, moves all 4 limbs Lymphatic: no nodes Psychiatric: normal affect, A&O x 3 Skin: no rash Deviation from normal: Multiple stable ecchymoses noted Dx/Plan - Plan Plan: Patient is a 78 y/o female that was directly admitted to the hospital for ITP (Plt Cnt: 4) # ITP -History of multiple episodes of unprovoked bleeding or easy bruising -Per Oncology, the patient's Plt Cnt was critically low -Oncology: Consulted, currently following - recommended IVIG, 40 IV Dexamethasone x 2 days -Plt Cnt: 75 on 07/25 -Will continue to monitor Platelet function # CLL -Oncology: Consulted, currently following -Previously received 3rd dose of Rituximab at [facility] -Oncology recommendations appreciated # HTN -BP: 133/66 on 07/25 -Continue home Chlorthalidone regimen # Hypokalemia -K: 2.8 on 07/25 -Patient currently taking K-Dur 40 meq BID -Will supplement with K-Dur 40 meq this AM - continue to monitor -Per Oncology Floor staff, KCl IV is not recommended in order to protect current venous access Code: Full Diet: Regular Activity: Ad maritza VTE PPx: None Dispo: Patient is currently stable on the Oncology Floor for ongoing IVIG and steroid treatment. Coordinate closely with Oncology and manage HTN as needed. Expected LOS < 48H
[2019-07-25] MEDS: HYDROcodone/Acetaminophen 5/325 mg Tablet PO PRN ×2 (05:57→13:05)
[2019-07-25] MEDS ORDERED: Potassium Chloride 20 MEQ in Premix Bag 1 BAG IVPB SCH (06:00)
[2019-07-25] MEDS ORDERED: Potassium Chloride 20 MEQ TAB PO SCH (07:45)
[2019-07-25 08:14] LABS: Magnesium 1.7 mg/dL (1.6-2.6); Phosphorus 2.5 mg/dL (2.3-4.7)
[2019-07-25] MEDS ORDERED: Dexamethasone 10 MG/ML VIAL SLOW IVP SCH (09:00)
[2019-07-25] MEDS ORDERED: Stress 600 With Zinc 1 TAB PO SCH (09:00)
[2019-07-25] MEDS ORDERED: HERBAL DRUGS PO SCH (09:00)
[2019-07-25] MEDS ORDERED: Vit A,C & E/Lutein/Minerals Tablet PO SCH (09:00)
[2019-07-25] MEDS ORDERED: Dexamethasone 4 MG TAB PO SCH (10:00)
--- NOTE | 2019-07-25 11:11 | PDOC.MOPN ---
Interval History: No bleeding, feels good. Slight cough. No fever. - Vital Signs Vital Signs: Vital Signs (12 hours) Temp Pulse Resp BP Pulse Ox 07/25/19 07:21 97 07/24/19 23:48 97.6 F 72 16 133/66 95 Weight Weight 139 lb - Physical Exam General: Alert, Oriented x3, No acute distress HEENT: Atraumatic, PERRLA, EOMI, Mucous membr. moist/pink Lungs: Clear to auscultation, Normal air movement Cardiovascular: Regular rate, Normal S1, Normal S2, No murmurs, Gallops, Rubs Abdomen: Normal bowel sounds, Soft, No tenderness, No hepatospenomegaly, No masses Extremities: No clubbing, No cyanosis, No edema, Normal pulses, No tenderness/ swelling Skin: No rashes, No breakdown, No significant lesion Neurological: Normal gait, Normal speech, Strength at 5/5 X4 ext, Normal tone, Sensation intact, Cranial nerves 3-12 NL, Reflexes 2+ Psych/Mental Status: Mental status NL, Mood NL - Labs Result Diagrams: 07/25/19 04:08 07/25/19 04:08 Lab results: Laboratory Results - last 24 hr 07/25/19 04:08: Phosphorus 2.5, Magnesium 1.7 07/25/19 04:08: WBC 18.6 H, RBC 4.18 L, Hgb 12.7, Hct 37.4, MCV 89.3, MCH 30.2, MCHC 33.8, RDW 12.9, Plt Count 75 L, MPV 15.3 H, Neutrophils % 82.8 H, Neutrophils % (Manual) Not Reportable, Lymphocytes % 14.5 L, Monocytes % 2.3, Eosinophils % 0.0, Basophils % 0.3, Neutrophils # 15.4 H, Lymphocytes # 2.7, Monocytes # 0.4, Eosinophils # 0.0, Basophils # 0.1, Large Platelets SLIGHT, Plt Morphology Comment Appears Decreased L 07/25/19 04:08: Sodium 135 L, Potassium 2.8 L*, Chloride 103, Carbon Dioxide 24 , Anion Gap 11, BUN 15, Creatinine 0.77, Estimated GFR (MDRD) 73, Glucose 154 H , Calcium 9.6, Total Bilirubin 0.8, AST 14, ALT 19, Alkaline Phosphatase 78, Serum Total Protein 7.8, Albumin 3.8, Globulin 4.0 H, Albumin/Globulin Ratio 1.0 L Status: lab reviewed by me A/P - Problem (1) CLL (chronic lymphocytic leukemia) Current Visit: No Code(s): C91.90 - LYMPHOID LEUKEMIA, UNSPECIFIED NOT HAVING ACHIEVED REMISSION Status: Acute (2) Chronic ITP (idiopathic thrombocytopenia) Current Visit: No Code(s): D69.3 - IMMUNE THROMBOCYTOPENIC PURPURA Status: Acute - Plan Plan: Dose 2 of IVIG, dex today Good response with dose 1 yesterday. Ok to dc home after IVIG. She will follow-up clinic on Saturday at 10am.
--- NOTE | 2019-07-25 11:54 | PRG ---
DATE OF SERVICE: 07/25/2019 Please see the note from Dr. Chu for which I agree. The patient was seen, evaluated, and discussed with the residents at bedside. Here for ITP. Platelets were as low as 4. Oncology is involved. Gave her IVIG and steroids and our platelets are drastically improved, and it sounds like the plan is to send her out this afternoon and follow up with Oncology. We are also watching her low potassium and will replace that. That is likely from the chlorthalidone that she takes for blood pressure. No other major complaints or issues currently, and we will follow up with Oncology. Job ID: [id number]
[2019-07-25 12:37] LABS: Anion Gap 8 mmol/L (10-20); BUN (Urea Nitrogen) 14 mg/dL (9.8-20.1); Calc. Creatinine Clearance 55 mL/min (70-130); Calcium 10.1 mg/dL (7.8-10.44); Carbon Dioxide 28 mmol/L (23-31); Chloride 103 mmol/L (98-107); Estimated GFR-MDRD 63; Glucose 133 mg/dL (83-110); Potassium 3.4 mmol/L (3.5-5.1); Sodium 136 mmol/L (136-145)
[2019-07-25] MEDS: OCTAGAM 10% 60 GM in Admixture Fee 1 EACH IVPB SCH (13:08)
[2019-07-25 16:57] VITALS: BP 155/68; TEMP 97.8
--- NOTE | 2019-07-26 07:10 | DIS ---
DATE OF ADMISSION: 07/24/2019 DATE OF DISCHARGE: 07/25/2019 RESIDENT: Elías Chu MD. ADMITTING ATTENDING: Diamond Mei MD. DISCHARGE ATTENDING: Aby Maldonado MD. CONSULTS: Isabel Curry NP, Oncology. PROCEDURES: None. PRIMARY DIAGNOSIS: Immune thrombocytopenic purpura. SECONDARY DIAGNOSES: Chronic lymphocytic leukemia, hypokalemia and hypertension. DISCHARGE MEDICATIONS: None. DISCONTINUED MEDICATIONS: 1. Acetaminophen 650 mg p.o. q.4 hours. 2. [place] 5/325 one tab p.o. q.4 hours. 3. Vitamin D 1000 units p.o. b.i.d. 4. Dexamethasone 40 mg IV daily. 5. Immunoglobulin 60 g IV daily. 6. Multivitamin one tab p.o. daily. 7. Multivitamin with zinc one tab p.o. daily. 8. Potassium chloride 20 mEq IV q.2 hours x1. 9. Potassium chloride 40 mEq p.o. daily. HISTORY OF PRESENT ILLNESS AND HOSPITAL COURSE: Ms. Hawk is a pleasant 78-year -old female with a history of chronic lymphocytic leukemia, who presents to the clinic after visiting her oncologist. She had lab work done and was found to have a platelet count of 4. She reports she is feeling well and that she only occasionally feels lightheaded. She denies any falls. She also reports feeling fatigued and shortness of breath with exertion. She reports that she had two unprovoked episodes of epistaxis that took several hours to resolve with the most recent being two days prior to presentation. She denies any hematemesis, hematuria, hematochezia or melena as well as nausea, vomiting, diarrhea. She reports chronic bruising and has chronic numbness over the anterior aspect of her left thigh and left lower leg and the previous back surgery. During her hospital stay, she remained stable on the Oncology floor and received two doses of dexamethasone and two doses of IVIG per Oncology recommendations as listed elsewhere in this document. Her overall condition remained stable during her time and she was discharged with close followup with the Oncology unit on 07/28/2019. On discharge, her vital signs revealed a temperature of 97.8, heart rate 68, blood pressure 155/68, respirations 16 per minute, oxygen saturation 95% on room air. LABORATORY ANALYSIS: Revealed a white blood cell count of 18.6, hemoglobin 12.7 , hematocrit 37.4, platelet count 75, improved from 4 on admission. Chem panel revealed a sodium of 136; potassium 3.4, improved from 2.8 on admission; chloride 103; carbon dioxide 28; BUN 14; creatinine 0.87; glucose 133; calcium 10.7; phosphorus 2.5; magnesium 1.7. Total bilirubin 0.8, AST 14, ALT 19, alkaline phosphatase 78. DISPOSITION: Stable. DISCHARGE INSTRUCTIONS: 1. Location: Home. 2. Diet: Heart healthy diet. 3. Activity: No restrictions. 4. Followup: The patient tolerated her infusions of IVIG and steroids well. She was referred to her oncologist to follow up on 07/28/2019. She had no complaints and was pleased with the care during hospitalization. Job ID: [id number] [facility]ITALChadwick
[2019-07-26] MEDS ORDERED: Calcium Carbonate + Vit D 1 TAB PO SCH (09:00)
== END 2019-07-25 17:56 | disposition home or self-care (01) | DRG 813 ==
LOC: ONC 11:15
PROVIDERS: ADMIT Family Medicine; ATTEND Family Medicine
DX: D69.3 Immune thrombocytopenic purpura (principal); C91.10 Chronic lymphocytic leukemia of B-cell type not having achieved remission; Z88.2 Allergy status to sulfonamides; Z88.8 Allergy status to other drugs, medicaments and biological substances; Z90.710 Acquired absence of both cervix and uterus; Z90.49 Acquired absence of other specified parts of digestive tract; Z98.890 Other specified postprocedural states; E87.6 Hypokalemia
CPT/HCPCS: 36415; 80053; 83735; 84100; 85025; J1100; J1568; J3480; J8540

== ENCOUNTER 2019-07-31 10:03 | Outpatient (CLI) | payer MEDICARE ==
--- NOTE | 2019-07-31 10:48 | CT ---
CT head with and without contrast: 07/31/2019 COMPARISON: None HISTORY: History of CLL, thrombocytopenia, constant headaches TECHNIQUE: Axial CT imaging at 5 mm intervals from vertex through skull base obtained with and withou t IV contrast FINDINGS: The imaged paranasal sinuses and mastoid air cells are well aerated. No displaced calvarial fracture. No intracranial hemorrhage, midline shift, or mass effect. Postcontrast imaging demonstrates no abnormal enhancement within the brain parenchyma. This study is not tailored to assess the arterial structures. IMPRESSION: No acute findings.
[2019-07-31] MEDS ORDERED: Iopamidol 370 76% 100 ML VIAL ONE (11:38)
== END 2019-07-31 10:04 | disposition home or self-care (01) ==
LOC: CT 10:03
PROVIDERS: ATTEND Internal Medicine Hematology & Oncology
DX: C91.12 Chronic lymphocytic leukemia of B-cell type in relapse (principal); D69.6 Thrombocytopenia, unspecified; R42 Dizziness and giddiness; R51 Headache; R26.81 Unsteadiness on feet
CPT/HCPCS: 70470; Q9967